=== PATIENT | male | born 1975 | race Caucasian/White ===

== ENCOUNTER 2021-04-20 13:25 | Emergency (ER) | payer OTHER ==
[~2021-04-20] VITALS: Ht 177.8 cm; Wt 78.9 kg
[2021-04-20] MEDS ORDERED: LISINOPRIL10 MG PO (16:37)
[2021-04-20] MEDS ORDERED: OMEPRAZOLE20 MG PO (16:38)
[2021-04-20] MEDS ORDERED: LINZESS290 MCG PO (16:38)
[2021-04-20] MEDS ORDERED: HYDROCODON-ACE1 EA10 PO (20:44)
== END 2021-04-20 21:00 | disposition home or self-care (01) ==
LOC: ED 13:25
DX: S06.0X1A Concussion with loss of consciousness of 30 minutes or less, initial encounter (principal); I10 Essential (primary) hypertension; K21.9 Gastro-esophageal reflux disease without esophagitis; Z79.899 Other long term (current) drug therapy; W22.8XXA Striking against or struck by other objects, initial encounter
CPT/HCPCS: 70450; 72125; 99284-25; A9270

== ENCOUNTER 2021-04-30 16:15 | Emergency (ER) | payer OTHER ==
[~2021-04-30] VITALS: Ht 177.8 cm; Wt 78.9 kg
[~2021-04-30 16:15] MED LIST: HYDROCODON-ACE1 EA10 PO; LINZESS290 MCG PO; LISINOPRIL10 MG PO; OMEPRAZOLE20 MG PO
--- OUTSIDE RECORDS SUMMARY | 2021-04-30 16:18 | XMS ---
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 Charles VISIT COUNT (12 MO.) [facility] NOTE: Visits indicate total known visits. ED/UCC VISIT TRACKING (12 MO.) 04/30/2021 16:17 [facility] [place] TYPE: Emergency COMPLAINT: - SUICIDAL 04/20/2021 13:28 [facility] [place] TYPE: Emergency COMPLAINT: - FALL, HEAD INJURY DIAGNOSES: - Gastro-esophageal reflux disease without esophagitis - Concussion with loss of consciousness of 30 minutes or less, initial encounter - Other [place] [facility] (current[facility] drug therapy - Unspecified injury of head, initial encounter - Essential (primary) hypertension - Striking against or struck by other objects, initial encounter INPATIENT VISIT TRACKING (12 MO.) No inpatient visits to display in this time frame [id number]
--- NOTE | 2021-05-01 08:07 | EKG ---
[facility] [address] [facility] [place], [place] [address] Signed Normal sinus rhythm with sinus arrhythmia Normal ECG No previous ECGs available Confirmed by ROMAN JOHNSON MD ([id number]) on 05/01/2021 8:07:35 AM Electronically Signed By: ROMAN JOHNSON MD 05/01/21 0807 PATIENT NAME: MICHELE PITT Electrocardiogram DATE OF : 73 PHYSICIAN: ROMAN JOHNSON MD REPORT #: [id number] REPORT IS CONFIDENTIAL AND NOT TO BE RELEASED WITHOUT AUTHORIZATION
[2021-05-01] MEDS ORDERED: HYDROXYZINE HCL50 MG PO (11:51)
[2021-05-01] MEDS ORDERED: DICLOFENAC POTA50 MG PO (11:54)
== END 2021-05-01 16:17 ==
LOC: ED 16:15
DX: R45.851 Suicidal ideations (principal); I10 Essential (primary) hypertension; K21.9 Gastro-esophageal reflux disease without esophagitis; Z79.899 Other long term (current) drug therapy; Z20.822 Contact with and (suspected) exposure to COVID-19
CPT/HCPCS: 36415; 80053; 81001; 84443; 85025; 93005; 93010; 99285-25; A9270; C9803; G0480; U0003

== ENCOUNTER 2021-09-08 12:34 | Emergency (ER) | payer OTHER ==
[~2021-09-08] VITALS: Ht 175.3 cm; Wt 101.2 kg
[~2021-09-08 12:34] MED LIST changes: +DICLOFENAC POTA50 MG PO; +HYDROXYZINE HCL50 MG PO
--- OUTSIDE RECORDS SUMMARY | 2021-09-08 12:36 | XMS ---
PreManage Notification: MICHELE PITT Security Endoscope Technician Events No recent Security Events currently on file CRITERIA MET - PDMP CARE PROVIDERS LEATHA WELDON Physician Weight Calculator Current PHONE: [phone] Rachel has no Care Guidelines for this patient. EMatthew VISIT COUNT (12 MO.) 3 [facility] TOTAL 3 NOTE: Visits indicate total known visits. ED/UCC VISIT TRACKING (12 MO.) 09/08/2021 12:35 [facility] [place] TYPE: Emergency COMPLAINT: - MULTIPLE COMPLAINTS 04/30/2021 16:17 [facility] [place] TYPE: Emergency COMPLAINT: - SUICIDAL DIAGNOSES: - Other roasterman (current) drug therapy - Essential (primary) hypertension - Suicidal ideations - Contact with and (suspected) exposure to COVID-19 - Gastro-esophageal reflux disease without esophagitis 04/20/2021 13:28 [facility] [place] TYPE: Emergency COMPLAINT: - FALL, HEAD INJURY DIAGNOSES: - Gastro-esophageal reflux disease without esophagitis - Concussion with loss of consciousness of 30 minutes or less, initial encounter - Other custodial (current) drug therapy - Unspecified injury of head, initial encounter - Essential (primary) hypertension - Striking against or struck by other objects, initial encounter INPATIENT VISIT TRACKING (12 MO.) No inpatient visits to display in this time frame [id number]
[2021-09-08] MEDS ORDERED: LAMOTRIGINE200 MG PO (12:49)
[2021-09-08] MEDS ORDERED: RISPERIDONE2 MG PO (12:49)
[2021-09-08] MEDS ORDERED: AMITRIPTYLINE H25 MG PO (12:49)
[2021-09-08] MEDS ORDERED: ONDANSETRON ODT8 MG PO (15:11)
== END 2021-09-08 15:51 | disposition home or self-care (01) ==
LOC: ED 12:34
DX: K52.9 Noninfective gastroenteritis and colitis, unspecified (principal); I10 Essential (primary) hypertension; K21.9 Gastro-esophageal reflux disease without esophagitis; Z79.899 Other long term (current) drug therapy
CPT/HCPCS: 36415; 80053; 81001; 83690; 85025; 87045; 87493; 96361; 96374; 99284-25; J2405; J7030

== ENCOUNTER 2021-10-27 17:35 | Emergency (ER) | payer OTHER ==
[~2021-10-27] VITALS: Ht 175.3 cm; Wt 101.2 kg
[~2021-10-27 17:35] MED LIST changes: +AMITRIPTYLINE H25 MG PO; +LAMOTRIGINE200 MG PO; +ONDANSETRON ODT8 MG PO; +RISPERIDONE2 MG PO
--- OUTSIDE RECORDS SUMMARY | 2021-10-27 19:15 | XMS ---
PreManage Notification: MICHELE PITT Security Home Supervisor Events No recent Security Events currently on file CRITERIA MET - [facility] CARE PROVIDERS LEATHA WELDON Physician Private Branch Exchange Service Advisor Current PHONE: [phone] Rachel has no Care Guidelines for this patient. EMatthew VISIT COUNT (12 MO.) 4 [facility] TOTAL 4 NOTE: Visits indicate total known visits. ED/UCC VISIT TRACKING (12 MO.) 10/27/2021 17:36 [facility] [place] TYPE: Emergency COMPLAINT: - FEVER ABD PAIN 09/08/2021 12:35 [facility] [place] TYPE: Emergency COMPLAINT: - MULTIPLE COMPLAINTS DIAGNOSES: - Gastro-esophageal reflux disease without esophagitis - Diarrhea, unspecified - Noninfective gastroenteritis and colitis, unspecified - Essential (primary) hypertension - Other [facility] (current) drug therapy 04/30/2021 16:17 [facility] [place] TYPE: Emergency COMPLAINT: - SUICIDAL DIAGNOSES: - Suicidal ideations - Other [facility] (current) drug therapy - Contact with and (suspected) exposure to COVID-19 - Essential (primary) hypertension - Gastro-esophageal reflux disease without esophagitis 04/20/2021 13:[address] 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
[2021-10-27] MEDS ORDERED: HYDROCODON-ACE1 EA10 PO (22:41)
[2021-10-27] MEDS ORDERED: ONDANSETRON ODT8 MG PO (22:41)
[2021-10-27] MEDS ORDERED: METFORMIN HCL500 MG PO (22:42)
== END 2021-10-27 23:14 | disposition home or self-care (01) ==
LOC: ED 17:35
DX: U07.1 COVID-19 (principal); K86.9 Disease of pancreas, unspecified; E11.9 Type 2 diabetes mellitus without complications; K43.9 Ventral hernia without obstruction or gangrene; I10 Essential (primary) hypertension; K21.9 Gastro-esophageal reflux disease without esophagitis; Z79.899 Other long term (current) drug therapy
CPT/HCPCS: 36415; 74177; 80053; 81001; 83605; 83690; 85025; 87502; 96361; 96375; 99284-25; A9270; C9803; J1815; J2270; J2405; J7030; Q9967; U0003

== ENCOUNTER 2021-11-03 21:59 | Emergency (ER) | payer OTHER ==
[~2021-11-03] VITALS: Ht 175.3 cm; Wt 101.2 kg
[~2021-11-03 21:59] MED LIST changes: +METFORMIN HCL500 MG PO
--- OUTSIDE RECORDS SUMMARY | 2021-11-03 22:05 | XMS ---
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 EMatthew VISIT COUNT (12 MO.) [facility] TOTAL 5 NOTE: Visits indicate total known visits. ED/UCC VISIT TRACKING (12 MO.) 11/03/2021 21:59 [facility] [place] TYPE: Emergency COMPLAINT: - BLOOD SUGAR PROBLEM 10/27/2021 17:36 [facility] [place] TYPE: Emergency COMPLAINT: - FEVER ABD PAIN DIAGNOSES: - Type 2 diabetes mellitus without complications - Ventral hernia without obstruction or gangrene - Unspecified abdominal pain - Essential (primary) hypertension - Other manager intermediate (current) drug therapy - Gastro-esophageal reflux disease without esophagitis - COVID-19 - Disease of pancreas, unspecified 09/08/2021 12:35 [facility] [place] TYPE: Emergency COMPLAINT: - MULTIPLE COMPLAINTS DIAGNOSES: - Essential (primary) hypertension - Other custodial (current) drug therapy - Gastro-esophageal reflux disease without esophagitis - Diarrhea, unspecified - Noninfective gastroenteritis and colitis, unspecified 04/30/2021 16:17 [facility] [place] TYPE: Emergency COMPLAINT: - SUICIDAL DIAGNOSES: - Essential (primary) hypertension - Gastro-esophageal reflux disease without esophagitis - Suicidal ideations - Other custodial (current) drug therapy - Contact with and (suspected) exposure to COVID-19 04/20/2021 13:28 [facility] [place] TYPE: Emergency COMPLAINT: - FALL, HEAD INJURY DIAGNOSES: - Concussion with loss of consciousness of 30 minutes or less, initial encounter - Essential (primary) hypertension - Other custodial (current) drug therapy - Gastro-esophageal reflux disease without esophagitis - Striking against or struck by other objects, initial encounter - Unspecified injury of head, initial encounter INPATIENT VISIT TRACKING (12 MO.) No inpatient visits to display in this time frame [id number]
== END 2021-11-04 02:09 | disposition home or self-care (01) ==
LOC: ED 21:59
DX: E11.65 Type 2 diabetes mellitus with hyperglycemia (principal); E86.0 Dehydration; I10 Essential (primary) hypertension; K21.9 Gastro-esophageal reflux disease without esophagitis; Z79.899 Other long term (current) drug therapy; Z79.84 Long term (current) use of oral hypoglycemic drugs
CPT/HCPCS: 36415; 71045; 80053; 81001; 83605; 83690; 84484; 85025; 96374; 99285-25; J1885; J7121

== ENCOUNTER 2021-12-28 07:45 | Day surgery (SDC) | payer OTHER ==
[~2021-12-28] VITALS: Ht 175.3 cm; Wt 99.5 kg
--- NOTE | 2021-12-28 12:20 | NUR ---
12/28/21 1220 Rogelio Winston MEDICATED FOR PAIN AND NUASEA PER EMAR. DESATURATES ON ROOM AIR TO 88%. 2L O2 STARTED VIA NC AT 1215. SPO2 NOW 95%.
--- NOTE | 2021-12-28 12:56 | NUR ---
1245: PATIENT BACK IN DAY SURGERY ROOM FROM PACU. RATES PAIN 4/10. GIVEN ICE WATER, APPLE JUICE, AND CHOCOLATE PUDDING. ABDOMINAL DRESSING JUST ABOVE UMBILICUS IS CLEAN, DRY AND INTACT. VS CHECKED. IV SITE WNL. AND BABY AT BEDSIDE. CALL LIGHT WITHIN REACH.
--- NOTE | 2021-12-28 13:08 | NUR ---
PATIENT TOLERATED APPLE JUICE. REQUESTED CRANBERRY JUICE. MEDICATED FOR PAIN WITH 1 TAB OF NORCO. AND BABY AT BEDSIDE. CALL LIGHT WITHIN REACH.
--- NOTE | 2021-12-28 13:17 | OR ---
[facility] [address] [place], [place] [address] Signed DATE OF OPERATION: 12/28/2021 SURGEON: Annamaria An MD PREOPERATIVE DIAGNOSES: 1. Umbilical hernia (12 mm). 2. Epigastric hernias x2 (4 mm). POSTOPERATIVE DIAGNOSES: 1. Umbilical hernia (12 mm). 2. Epigastric hernias x2 (4 mm). PROCEDURES: 1. Primary umbilical herniorrhaphy with intra-abdominal Ventralex mesh (6.4 cm). 2. Primary epigastric herniorrhaphy x2. ESTIMATED BLOOD LOSS: None. INDICATIONS: Michele is a 46-year-old gentleman, asked to see me mainly for his incarcerated symptomatic umbilical hernia. However, he has two small epigastric hernias just above the umbilicus. We can see these with the ultrasound and the CT scans that he has had. He also has diastasis recti. 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 He noticed that he was having pain and swelling at the umbilicus. He felt it was worse after he eats. He went to his primary care provider. He has had a couple of CT scans recently, I think mainly for his kidney stones. An ultrasound of the abdomen was also performed and sure enough he has incarcerated fat at his umbilicus and then he has two small epigastric hernia just above the umbilicus. The herniated fat is around 7 x 6 mm. He was therefore asked to see me with respect to the above. I met with Michele and his in the office. I had reviewed the radiographic studies myself. One could easily palpate the umbilical hernia, but it was not reducible. We could not specifically palpate the supraumbilical epigastric hernias, which is quite common. I gave Michele a booklet on hernias and we reviewed both epigastric and umbilical hernias. I explained to him we would make a vertical incision above the umbilicus and that help us cover both areas. I also explained to Michele this is actually quite common. Often the epigastric hernias are so small we just simply close them with a [id number] Prolene suture. For the umbilical hernias, we generally use a small piece of mesh. He understands expected intraop and postop course. There is risk including, but not limited to Electronically Signed By: ANNAMARIA AN MD 12/28/21 1317 PATIENT NAME: MICHELE PITT OPERATIVE REPORT DATE OF : 73 REPORT #: [id number] PHYSICIAN: ANNAMARIA AN MD PCP: LEATHA WELDON PA-C REPORT IS CONFIDENTIAL AND NOT TO BE RELEASED WITHOUT AUTHORIZATION [address] [address] Signed bleeding, infection, scarring, change in contour of the skin, damage to bowel, infection of mesh requiring removal, recurrent hernias and chronic pain. He had expressed understanding and wished to proceed. DESCRIPTION OF PROCEDURE: Michele was taken in the operating room and placed in the supine position under general anesthesia. He was given preoperative antibiotics along with subcutaneous heparin. SCDs were utilized. He was prepped and draped in the usual sterile fashion. A standard vertical midline incision was made just above the umbilicus and carried down through the tissues bluntly and with the cautery. We found both the epigastric hernias. Each one was about 4 mm in diameter. There was about 4 mm of fascia between the two. We simply used #1 Prolene suture in a [id number] fashion to close each epigastric hernia primarily. After this, we the umbilical skin from the umbilical fascial defect, then excise the hernia sac and pass it off the field. The fascial defect was probably 12 mm. We therefore chose our 6.4 cm round Ventralex mesh. This was placed inside the abdominal cavity and brought up flushed against the posterior abdominal wall. We closed the fascial defect transversely with a running #1 Prolene suture. Several passes of the Prolene suture went through the tab on the mesh to help hold it in place. The tab was cut, flushed with the abdominal wall. We then injected local anesthetic into the abdominal wall as well as the subcutaneous tissues. The wound was irrigated and suctioned out until clear. We brought the umbilical skin back down to the midline with interrupted 2-0 PDS suture. We closed the dermis with interrupted 3-0 Monocryl subcuticular sutures. The skin edges were reapproximated with a running 5-0 fast absorbing plain gut suture. Dry gauze and tape were then applied. Michele was then awakened from his anesthesia, extubated in the OR, and taken to recovery room in stable condition. Annamaria An MD ALB/MODL /[id number] cc: LENA Steward MD Electronically Signed By: ANNAMARIA AN MD 12/28/21 1317 PATIENT NAME: MICHELE PITT OPERATIVE REPORT DATE OF : 73 REPORT #: [id number] PHYSICIAN: ANNAMARIA AN MD PCP: LEATHA WELDON PA-C REPORT IS CONFIDENTIAL AND NOT TO BE RELEASED WITHOUT AUTHORIZATION [address] [address] Signed Copies: LEATHA WELDON PA-C, ANDREW L MD ~ Electronically Signed By: ANNAMARIA AN MD 12/28/21 1317 PATIENT NAME: MICHELE PITT OPERATIVE REPORT DATE OF : 73 REPORT #: [id number] PHYSICIAN: ANNAMARIA AN MD PCP: LEATHA WELDON PA-C REPORT IS CONFIDENTIAL AND NOT TO BE RELEASED WITHOUT AUTHORIZATION
[2021-12-28] MEDS ORDERED: HYDROCODON-ACE1 EAC8 PO (13:25)
--- NOTE | 2021-12-28 15:24 | NUR ---
1340: VS CHECKED. RATED PAIN 4/10. PATIENT ASSISTED TO GET OOB AND TO BATHROOM. VOID WITHOUT DIFFICULTY. ASSISTED TO GET DRESSED BY . DISCHARGE INSTRUCTIONS GIVEN TO PATIENT. 1358: IV DC'D WNL. TIP INTACT. DRESSING APPLIED. PATIENT DISCHARGED TO HOME WITH AND BABY VIA MEDICAL TRANSPORT.
== END 2021-12-28 13:58 | disposition home or self-care (01) ==
LOC: DS 07:45
PROVIDERS: ATTEND Colon & Rectal Surgery
PROC: 0WUF0JZ Supplement Abdominal Wall with Synthetic Substitute, Open Approach (ICD-10-PCS; principal; 2021-12-28 08:50)
DX: K42.0 Umbilical hernia with obstruction, without gangrene (principal); K43.9 Ventral hernia without obstruction or gangrene; M62.08 Separation of muscle (nontraumatic), other site
CPT/HCPCS: J0131; J0690; J1100; J1644; J1885; J2001; J2405; J2704; J3010; J7121

== ENCOUNTER 2022-01-23 14:58 | Emergency (ER) | payer OTHER ==
[~2022-01-23] VITALS: Ht 175.3 cm; Wt 96.6 kg
[~2022-01-23 14:58] MED LIST changes: +HYDROCODON-ACE1 EAC8 PO
--- OUTSIDE RECORDS SUMMARY | 2022-01-23 15:00 | XMS ---
PreManage Notification: MICHELE PITT Security Dairy Farmer Events No recent Security Events currently on file CRITERIA MET - [facility] CARE PROVIDERS LEATHA WELDON Physician Dynamite Packing Machine Operator Current PHONE: [phone] Rachel has no Care Guidelines for this patient. E.Juan J VISIT COUNT (12 MO.) 6 [facility] TOTAL 6 NOTE: Visits indicate total known visits. 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 - Essential (primary) hypertension - Headache, unspecified - intermission coordinator (current) use of oral hypoglycemic drugs - Type 2 diabetes mellitus with hyperglycemia - Dehydration - Gastro-esophageal reflux disease without esophagitis 10/27/2021 17:36 [facility] [place] TYPE: Emergency COMPLAINT: - FEVER ABD PAIN DIAGNOSES: - Essential (primary) hypertension - Other [facility] (current) drug therapy - Gastro-esophageal reflux disease without esophagitis - COVID-19 - Disease of pancreas, unspecified - Type 2 diabetes mellitus without complications - Ventral hernia without obstruction or gangrene - Unspecified abdominal pain 09/08/2021 12:35 [facility] [place] TYPE: Emergency COMPLAINT: - MULTIPLE COMPLAINTS DIAGNOSES: - Gastro-esophageal reflux disease without esophagitis - Diarrhea, unspecified - Noninfective gastroenteritis and colitis, unspecified - Essential (primary) hypertension - Other fpc (current) drug therapy 04/30/2021 16:17 [facility] [place] TYPE: Emergency COMPLAINT: - SUICIDAL DIAGNOSES: - Suicidal ideations - Other fpc (current) drug therapy - Contact with and (suspected) exposure to COVID-19 - Essential (primary) hypertension - Gastro-esophageal reflux disease without esophagitis 04/20/2021 13:28 [facility] [place] TYPE: Emergency COMPLAINT: - FALL, HEAD INJURY DIAGNOSES: - 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
[2022-01-23] MEDS ORDERED: LATUDA80 MG PO (16:36)
[2022-01-23] MEDS ORDERED: JARDIANCE10 MG PO (16:36)
[2022-01-23] MEDS ORDERED: GABAPENTIN800 MG PO (16:36)
[2022-01-23] MEDS ORDERED: TAMSULOSIN HCL0.4 MG PO (16:36)
[2022-01-23] MEDS ORDERED: PHENAZOPYRIDIN100 MG PO (16:37)
[2022-01-23] MEDS ORDERED: HYDROCODON-ACE1 EA11 PO (18:58)
== END 2022-01-23 19:10 | disposition home or self-care (01) ==
LOC: ED 14:58
DX: S39.011A Strain of muscle, fascia and tendon of abdomen, initial encounter (principal); I10 Essential (primary) hypertension; K21.9 Gastro-esophageal reflux disease without esophagitis; Z79.899 Other long term (current) drug therapy; Z79.84 Long term (current) use of oral hypoglycemic drugs; X58.XXXA Exposure to other specified factors, initial encounter
CPT/HCPCS: 36415; 74177; 80053; 85025; 85060; 99284-25; A9270

== ENCOUNTER 2023-04-06 16:18 | Emergency (ER) | payer OTHER ==
[~2023-04-06] VITALS: Ht 175.3 cm; Wt 98.7 kg
[~2023-04-06 16:18] MED LIST changes: +GABAPENTIN800 MG PO; +HYDROCODON-ACE1 EA11 PO; +JARDIANCE10 MG PO; +LATUDA80 MG PO; +PHENAZOPYRIDIN100 MG PO; +TAMSULOSIN HCL0.4 MG PO
--- OUTSIDE RECORDS SUMMARY | 2023-04-06 16:20 | XMS ---
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 E.DClint VISIT COUNT (12 MO.) 2 [facility]st TOTAL 2 NOTE: Visits indicate total known visits. 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
[2023-04-06] MEDS ORDERED: ALBUTEROL/IPRATROPIUM 3 ML NEB INH ONE (17:45)
[2023-04-06] MEDS ORDERED: methylPREDNISolone 4 MG HOME.PACK PO ONE (18:45)
[2023-04-06] MEDS ORDERED: INHALER, ASSIST DEVICES 1 EACH SPACER MISC ONE (18:45)
[2023-04-06] MEDS ORDERED: ALBUTEROL SULFATE 8 GM HOME.PACK INH ONE (18:45)
[2023-04-06 18:55] VITALS: BP 129/85
== END 2023-04-06 18:55 | disposition home or self-care (01) ==
LOC: ED 16:18
DX: J10.1 Influenza due to other identified influenza virus with other respiratory manifestations (principal); I10 Essential (primary) hypertension; K21.9 Gastro-esophageal reflux disease without esophagitis; Z79.899 Other long term (current) drug therapy; Z79.84 Long term (current) use of oral hypoglycemic drugs
CPT/HCPCS: 71045; 94640; 94664; 99283-25

== ENCOUNTER 2023-06-21 07:34 | Day surgery (SDC) | payer OTHER ==
[~2023-06-21] VITALS: Ht 175.3 cm; Wt 95.0 kg
[~2023-06-21 07:34] MED LIST changes: +ADDERALL XR 2020 MG PO; +ADZENYS XR-OD18.8 MG PO; +CHLORPROMA25 MG/1 ML INJ; +DEXTROAMP-AMPHE10 MG PO; +FLOMAX0.4 MG PO; +IBLOOD GLUCOSE TEST STRIP 1 EA TEST VI PRN; +LACTATED RINGER'S 1,000 ML IV SCH; +LIDOCAINE HCL 1% 5 ML SDV INJ ONE; +LIPITOR20 MG PO; +PROPRANOLOL HCL40 MG PO; +VASCEPA1 GM PO; +VIT D2-K1 20-1259 ML PO
[2023-06-21 08:05] VITALS: BP 115/72
[2023-06-21] MEDS ORDERED: CHLORPROMAZINE25 MG PO (08:10)
[2023-06-21] MEDS ORDERED: METOPROLOL SUCC25 MG PO (08:10)
[2023-06-21] MEDS ORDERED: LISINOPRIL20 MG PO (08:11)
[2023-06-21] MEDS ORDERED: TRAZODONE HCL100 MG PO (08:11)
[2023-06-21] MEDS ORDERED: LIDOCAINE HCL 2% 5 ML SDV ONE (09:11)
[2023-06-21] MEDS ORDERED: propofoL 200 MG/20 ML VIAL ONE (09:28)
--- NOTE | 2023-06-21 09:54 | NUR ---
06/21/23 0954 Amauri Mccain 0938: PT ARRIVED TO PACU VIA STETCHER. PT ON RA BUT NON AROUSABLE AT THIS TIME. PTS SATS 92% ON RA AT THIS TIME. 0943: PT NOW AROUSABLE AT THIS TIME. PT ASKING FOR WATER. PT REMAINS ON RA WITH SATS IN THE MID 90'S. 0945: PT COMPLAINING OF NAUSEA AT THIS TIME. PT PASSING LARGE AMOUNTS OF GAS. DISCUSSED WITH PATIENT THE NEED TO PASS GAS TO HELP WITH NAUSEA TO VERBALIZED UNDERSTANDING.
[2023-06-21 10:31] VITALS: BP 119/80
--- NOTE | 2023-06-21 10:55 | NUR ---
PT CAME BACK TO DAY SURGERY TO GET DRESSED, PT ALERT AND ORIENTED. VOIDED CLEAR YELLOW URINE, 400 ML IN URINAL. SALINE LOCK REMOVED, TIP INTACT, DRESSING APPLIED. PT VERBALIZED UNDERSTANDING OF INSTRUCTIONS. NO SIGNS OF DISTRESS. AMBULATED WITH STEADY GAIT TO WHEEL CHAIR AND TAKEN OUT TO RIDE HOME WITH ALL BELONGINGS.
--- NOTE | 2023-06-22 09:08 | OR ---
[facility] [address] [place], [place] [address] Signed DATE OF OPERATION: 06/21/2023 SURGEON: Annamaria An MD PREOPERATIVE DIAGNOSES: 1. Chronic irritable bowel syndrome associated with severe constipation. 2. Paternal great grandmother with colon cancer in her late 80s. POSTOPERATIVE DIAGNOSES: 1. Minimal to moderate circumferential external hemorrhoids. 2. Poor bowel prep. PROCEDURE: Colonoscopy without biopsy to the midtransverse colon (80 cm). ESTIMATED BLOOD LOSS: None. INDICATIONS: Michele is a 47-year-old gentleman, asked to see me for his initial colonoscopy. He said he has various mental health medications and also has a long history of irritable bowel syndrome associated with chronic constipation. He said the medications make his constipation worse. He told me he only has a bowel movement about every 6-8 weeks. He said his has to help him with suppositories or enemas. He said Linzess really helped, but his insurance will not cover it. For some reason, he did not seem to be very familiar with MiraLAX. He takes an uoxm-rdo-rfqlckr fiber supplement. He told me his paternal great grandmother developed colon cancer in her very late 80s. She from her colon cancer in her early 90s. He had come to the office with his and his son. His is deaf and she uses a phone that interprets for her so she can communicate. In the office I had given him a pamphlet on colonoscopy. We reviewed the nature of the test together. He understands there is risk including, but not limited to gas bloating, crampy abdominal pain, bleeding, perforation requiring surgery, and missed diagnosis. We went through our bowel prep very carefully. We are going to have him take a double bowel prep. That includes a Dulcolax tablets and entire gallon of polyethylene glycol. For some reason, he wanted to use Dulcolax suppositories rather than tablets by mouth. We also went through his medications very carefully with respect to his diabetes and his Adderall. He also has to use some tramadol as needed. Based on that, we explained that he really needs monitored anesthesia care with propofol infusion. In addition, he has a full face, hammer and he is edentulous. Therefore, he underwent preoperative blood work and an EKG. He had expressed understanding and wished Electronically Signed By: ANNAMARIA AN MD 06/22/23 0908 PATIENT NAME: MICHELE PITT OPERATIVE REPORT DATE OF : 73 REPORT #: [id number] PHYSICIAN: ANNAMARIA AN MD PCP: ELVA WELDON PA-C REPORT IS CONFIDENTIAL AND NOT TO BE RELEASED WITHOUT AUTHORIZATION [address] [place], [place] [address] Signed to proceed. PROCEDURE IN DETAIL: Michele was taken into our endoscopy suite and placed in the left lateral decubitus position. He was given monitored anesthesia care, propofol infusion per our nurse primary montessori teacher. We can see his preoperative blood work showed that his BUN is up a little at 19, his creatinine is 1.53. Today, sugar was good, but preoperatively his sugar was 307. His albumin is good at 3.7. EKG showed normal sinus rhythm. After he was fully sedated, a digital rectal exam was performed. He does have small circumferential external hemorrhoids. He had good sphincter tone. There were no masses. We could not reach his prostate gland. The adult colonoscope was introduced and advanced under direct visualization of the camera. He immediately had large alison-like stool balls in the rectum up to sigmoid colon and left colon. Around those areas, he was actually clean. Unfortunately, when we got around the splenic flexure into the mid transverse colon we encountered a wall of stool that we simply could not pass. We tried multiple times as well as some irrigation and we simply could not pass the scope any further. As a result, we had to withdrawal the scope. We had taken several pictures throughout for photodocumentation. He has no diverticulosis. No inflammatory changes. Once in the rectum, the scope was retroflexed and he really has no internal hemorrhoids. After this, the gas was suctioned out. The colonoscope removed. Michele actually tolerated the procedure quite well. RECOMMENDATIONS: I will see Michele back in my office in 7 to 14 days to review these results. He is going to need what looks like a fairly substantial bowel prep. We will have to review that with him in the office. We may have to add some magnesium citrate or even two full days of prep. Annamaria An MD ALB/MODL /[id number] cc: MD Elva Morrison PA-C Electronically Signed By: ANNAMARIA AN MD 06/22/23 0908 PATIENT NAME: MICHELE PITT OPERATIVE REPORT DATE OF : 73 REPORT #: [id number] PHYSICIAN: ANNAMARIA AN MD PCP: ELVA WELDON PA-C REPORT IS CONFIDENTIAL AND NOT TO BE RELEASED WITHOUT AUTHORIZATION [address] [place], [place] [address] Signed Copies: ANNAMARIA AN MD, CHLOE K PA-C ~ Electronically Signed By: ANNAMARIA AN MD 06/22/23 0908 PATIENT NAME: MICHELE PITT OPERATIVE REPORT DATE OF : 73 REPORT #: [id number] PHYSICIAN: ANNAMARIA AN MD PCP: ELVA WELDON PA-C REPORT IS CONFIDENTIAL AND NOT TO BE RELEASED WITHOUT AUTHORIZATION
== END 2023-06-21 10:55 | disposition home or self-care (01) ==
LOC: DS 07:34
PROVIDERS: ATTEND Colon & Rectal Surgery
PROC: 0DJD8ZZ Inspection of Lower Intestinal Tract, Via Natural or Artificial Opening Endoscopic (ICD-10-PCS; principal; 2023-06-21 09:00)
DX: K58.1 Irritable bowel syndrome with constipation (principal); I10 Essential (primary) hypertension; E11.9 Type 2 diabetes mellitus without complications; E78.1 Pure hyperglyceridemia; E66.9 Obesity, unspecified; Z79.84 Long term (current) use of oral hypoglycemic drugs; Z79.899 Other long term (current) drug therapy; Z68.31 Body mass index [BMI] 31.0-31.9, adult
CPT/HCPCS: 00811; J2001; J2704; J7121

== ENCOUNTER 2023-10-19 07:35 | Emergency (ER) | payer OTHER ==
[~2023-10-19] VITALS: Ht 175.3 cm; Wt 81.0 kg
[~2023-10-19 07:35] MED LIST changes: +CHLORPROMAZINE25 MG PO; -IBLOOD GLUCOSE TEST STRIP 1 EA TEST VI PRN; -LACTATED RINGER'S 1,000 ML IV SCH; -LIDOCAINE HCL 1% 5 ML SDV INJ ONE; +LISINOPRIL20 MG PO; +METOPROLOL SUCC25 MG PO; +TRAZODONE HCL100 MG PO
[2023-10-19] MEDS ORDERED: HYDROmorphone HCL 1 MG/ML SYR IV ONE (07:45)
[2023-10-19] MEDS ORDERED: SODIUM CHLORIDE 0.9% 1,000 ML IV ONE (07:45)
[2023-10-19 07:57] LABS: BASOPHILS 0.5 % (0-2); EOSINOPHILS 2.7 % (0-6); HEMATOCRIT 38.2 % (35.0-50.0); LYMPHOCYTES 30.2 % (24-44); MCH 29.9 (27-36); MCHC 34.1 g/dl (30-36); MCV 87.8 fl (81-99); MONOCYTES 10.8 % (0-12); NEUTROPHILS 55.8 % (39-80); PLATELET COUNT 275 K/uL (140-440); RBC 4.35 M/ul (4.3-5.7); RDW 13.9 (10.5-15.0)
[2023-10-19 08:13] LABS: ALBUMIN 3.4 g/dL (3.4-5.0); ALBUMIN/GLOBULIN RATIO 0.92 (1.1-2.4); ANION GAP 13.3 (7-21); BILIRUBIN, TOTAL 0.4 ng/dL (0.2-1.0); BUN/CREATININE RATIO 14.17 (6.0-28.6); CALCIUM 9.2 mg/dL (8.5-10.1); CREATININE, SERUM 1.34 mg/dL (0.70-1.30); POTASSIUM 3.3 mmol/L (3.5-5.1); PROTEIN, TOTAL 7.1 g/dL (6.4-8.2)
[2023-10-19 09:00] VITALS: BP 130/84
[2023-10-19] MEDS ORDERED: MAGNESIUM CITRATE 300 ML BTL PO ONE (09:00)
== END 2023-10-19 09:00 | disposition home or self-care (01) ==
LOC: ED 07:35
PROVIDERS: Emergency Medicine
DX: R10.11 Right upper quadrant pain (principal); K59.00 Constipation, unspecified; K21.9 Gastro-esophageal reflux disease without esophagitis; I10 Essential (primary) hypertension; Z79.84 Long term (current) use of oral hypoglycemic drugs; Z79.899 Other long term (current) drug therapy
CPT/HCPCS: 36415; 74176; 76705; 80053; 83690; 85025; 96374; 99284-25; J1170; J7030

== ENCOUNTER 2024-02-23 17:31 | Observation (INO) | payer OTHER ==
[~2024-02-23] VITALS: Ht 175.3 cm; Wt 91.9 kg
[2024-02-23] MEDS ORDERED: ondansetron HCL 4 MG/2 ML VIAL IV PRN ×2 (18:00→21:45)
[2024-02-23] MEDS ORDERED: KETOROLAC TROMETHAMINE 15 MG/ML VIAL IV ONE (18:00)
[2024-02-23] MEDS ORDERED: DAPAGLIFLOZIN10 MG PO (18:04)
[2024-02-23] MEDS ORDERED: LURASIDONE HCL80 MG PO (18:05)
[2024-02-23 18:27] LABS: BASOPHILS 0.1 % (0-2); HEMATOCRIT 45.6 % (35.0-50.0); HEMOGLOBIN 15.3 g/dL (12.0-18.0); LYMPHOCYTES 5.6 % (24-44); MCH 29.3 (27-36); MCHC 33.6 g/dl (30-36); MCV 87.1 fl (81-99); MONOCYTES 4.3 % (0-12); PLATELET COUNT 317 K/uL (140-440); RBC 5.24 M/ul (4.3-5.7); RDW 15.3 (10.5-15.0)
[2024-02-23] MEDS ORDERED: MORPHINE SULFATE 4 MG/ML VIAL IV ONE ×2 (18:30→20:00)
[2024-02-23 18:31] LABS: ALBUMIN/GLOBULIN RATIO 0.83 (1.1-2.4); ANION GAP 15.6 (7-21); BILIRUBIN, TOTAL 0.3 ng/dL (0.2-1.0); BUN/CREATININE RATIO 12.25 (6.0-28.6); CALCIUM 9.3 mg/dL (8.5-10.1); CREATININE, SERUM 2.04 mg/dL (0.70-1.30); POTASSIUM 3.6 mmol/L (3.5-5.1); PROTEIN, TOTAL 8.8 g/dL (6.4-8.2)
[2024-02-23] MEDS ORDERED: LIDOCAINE 2% VISCOUS 6 ML SYR TOP ONE ×2 (20:30→23:30)
[2024-02-23 20:55] LABS: BILIRUBIN, URINE NEGATIVE (negative); BLOOD/HGB, URINE LARGE (Negative); KETONE, URINE NEGATIVE (Negative); LEUK ESTERASE, URINE NEGATIVE (negative); NITRITE, URINE POSITIVE (negative)
[2024-02-23 21:04] LABS: BACTERIA, URINE 1+ /hpf (negative); CASTS, URINE NONE SEEN \\lpf; CRYSTALS, URINE NONE SEEN (0-1+); EPITHELIAL CELLS, URINE NONE SEEN /lpf (0-1+); RED BLOOD CELLS, URINE 41-50 /hpf (0-5)
[2024-02-23 21:05] LABS: COLLECTION TYPE, URINE CLEAN CATCH; REFLEX CULTURE, URINE No (No)
[2024-02-23] MEDS ORDERED: SODIUM CHLORIDE 0.9% 1,000 ML IV ONE (21:30)
[2024-02-23] MEDS ORDERED: CEFTRIAXONE/SODIUM CHLORIDE 2 GM/100 ML PIGGYBACK IV ONE (21:30)
[2024-02-23] MEDS ORDERED: IBLOOD GLUCOSE TEST STRIP 1 EA TEST VI SCH (21:45)
[2024-02-23] MEDS ORDERED: DEXTROSE 5% - LACTATED RINGERS 1,000 ML IV SCH (21:45)
[2024-02-23] MEDS ORDERED: INSULIN LISPRO 100 UNIT/ML ML SUB-Q SCH (21:45)
[2024-02-23] MEDS ORDERED: ACETAMINOPHEN 325 MG TAB PO PRN (21:45)
[2024-02-23] MEDS ORDERED: KETOROLAC TROMETHAMINE 15 MG/ML VIAL IV PRN (21:45)
[2024-02-23] MEDS ORDERED: HYDROmorphone HCL 1 MG/ML SYR IV PRN ×2 (21:45)
[2024-02-23 22:19] VITALS: BP 173/96
--- NOTE | 2024-02-23 23:11 | NUR ---
- Pt admitted to room 123 at 2215 pm.via stretcher from ED, helped transferring tolerated well. ivf bolus completed soon after admitting to this unit. tolerated clear liquids no n/v, aware of NPO status after midnight, was straight cath in the ED prior to admit. IVf infusing, was medicated with Dilaudid 0.5mg per 8/10 urinary pain. Coop with admit questions and assessments. tele#[address] denies CP or SOB with exertion. Kisha who is deaf at bedside. Pt and oriented to room and procedures, both stated understanding
--- NOTE | 2024-02-24 00:02 | NUR ---
PT UED URINAL, VOIDED 650CC ORANGE COLORED URINE. C/O PAIN WITH URINATION.
[2024-02-24 01:35] VITALS: BP 151/98
--- NOTE | 2024-02-24 02:08 | NUR ---
Awake, c/o urinary pain, medicated with Dilaudid 0.5mg IV. IVF infusing. NPO, soes own oral care. rooming in
[2024-02-24 05:18] VITALS: BP 163/108
[2024-02-24 05:20] VITALS: BP 163/108
[2024-02-24 05:24] LABS: BASOPHILS 0.3 % (0-2); EOSINOPHILS 0.9 % (0-6); HEMATOCRIT 39.7 % (35.0-50.0); HEMOGLOBIN 13.3 g/dL (12.0-18.0); MCHC 33.5 g/dl (30-36); MCV 86.7 fl (81-99); MONOCYTES 11.7 % (0-12); NEUTROPHILS 68.1 % (39-80); PLATELET COUNT 272 K/uL (140-440); RBC 4.58 M/ul (4.3-5.7); RDW 15.4 (10.5-15.0)
--- NOTE | 2024-02-24 05:30 | NUR ---
Pt sitting edge of bed trying to use urinal, voided 400cc orange colored urine, c/o 8/10 pain, medicated with Dilaudid 0.5mg IV. Repositioned self back in bed. NPO since midnight, does own oral care, on room air. Abd upper abd slightly firmer than lower abd, brandy. IVF infusing w/o problems. at bedside.
[2024-02-24 05:40] LABS: ALBUMIN 3.3 g/dL (3.4-5.0); ALBUMIN/GLOBULIN RATIO 0.85 (1.1-2.4); ANION GAP 12.7 (7-21); BILIRUBIN, TOTAL 0.4 ng/dL (0.2-1.0); BUN/CREATININE RATIO 10.88 (6.0-28.6); CALCIUM 8.7 mg/dL (8.5-10.1); CREATININE, SERUM 1.93 mg/dL (0.70-1.30); POTASSIUM 3.7 mmol/L (3.5-5.1); PROTEIN, TOTAL 7.2 g/dL (6.4-8.2)
--- NOTE | 2024-02-24 07:20 | NUR ---
REPORT RECEIVED FROM NICHELLE WILDER. PT AWAKE IN BED, PRESENT IN CHAIR AT BEDSIDE. NO REQUESTS AT THIS TIME, CALL LIGHT IN REACH.
--- NOTE | 2024-02-24 08:25 | NUR ---
Board has been updated and glucose chech has been completed. Call light has been placed within reach.Urinal was given
[2024-02-24] MEDS ORDERED: CEFTRIAXONE/SODIUM CHLORIDE 2 GM/100 ML PIGGYBACK IV SCH (09:00)
[2024-02-24 09:34] VITALS: BP 133/98
--- NOTE | 2024-02-24 09:56 | NUR ---
ARRIVES TO ASSESS PT AND OBTAIN CONSENT AT THIS TIME.
[2024-02-24 10:03] VITALS: BP 133/98
--- NOTE | 2024-02-24 10:05 | NUR ---
DR MCKEON ANSWERS ALL QUESTIONS, CONSENT OBTAINED. PT HAS NO OTHER REQUESTS AT THIS TIME, CALL LIGHT IN REACH, REMAINS AT BEDSIDE.
--- NOTE | 2024-02-24 10:09 | NUR ---
DR MCKEON REQUESTS CXR AND EKG AT THIS TIME, ORDERS PLACED.
[2024-02-24] MEDS ORDERED: PHENAZOPYRIDINE HCL 100 MG TAB PO PRN (10:45)
[2024-02-24] MEDS ORDERED: HYDROmorphone HCL 1 MG/ML SYR IV PRN (10:45)
[2024-02-24] MEDS ORDERED: ondansetron HCL 4 MG/2 ML VIAL IV PRN (10:45)
[2024-02-24] MEDS ORDERED: OXYCODONE/APAP 5/325 TAB PO PRN (10:45)
--- NOTE | 2024-02-24 10:55 | NUR ---
PT READY FOR SURGERY AT THIS TIME. URINAL EMPTIED, PT VOIDS CLEAR, YELLOW URINE. NO OTHER REQUESTS, CALL LIGHT IN REACH.
[2024-02-24] MEDS ORDERED: iopamidoL 30 ML VIAL ONE (10:58)
[2024-02-24] MEDS ORDERED: fentaNYL citrate 100 MCG/2 ML VIAL ONE (11:01)
[2024-02-24] MEDS ORDERED: propofoL 200 MG/20 ML VIAL ONE (11:02)
[2024-02-24] MEDS ORDERED: ondansetron HCL 4 MG/2 ML VIAL ONE (11:02)
[2024-02-24] MEDS ORDERED: DEXAMETHASONE SOD PHOS 4 MG/ML VIAL ONE (11:02)
[2024-02-24] MEDS ORDERED: LIDOCAINE HCL 2% 5 ML SDV ONE (11:03)
--- NOTE | 2024-02-24 11:13 | NUR ---
PT TAKEN TO SURGERY BY SPIRITUAL ADVISOR AT THIS TIME.
[2024-02-24] MEDS ORDERED: CEFTRIAXONE/SODIUM CHLORIDE 2 GM/100 ML PIGGYBACK IV ONE (11:15)
[2024-02-24] MEDS ORDERED: ACETAMINOPHEN 1,000 MG/100 ML VIAL ONE (11:36)
--- NOTE | 2024-02-24 12:24 | NUR ---
PT REMAINS OFF THE FLOOR AT THIS TIME.
--- NOTE | 2024-02-24 12:40 | NUR ---
PT RETURNS FROM SURGERY. REPORT RECEIVED. PT AMBULATES FROM SURGERY STRETCHER TO HOSPITAL BED INDEPENDENTLY. PT REPORTS FEELING HUNGRY - CLEAR LIQUID LUNCH TRAY PROVIDED AT THIS TIME. VS TAKEN AND RECORDED. SCDs IN PLACE, IVF INFUSING WNL. NO OTHER REQUESTS AT THIS TIME, CALL LIGHT IN REACH.
[2024-02-24 12:45] VITALS: BP 145/92
--- NOTE | 2024-02-24 12:52 | NUR ---
02/24/24 1252 ROZ NOVA 1153 PT ARRIVED TO PACU VIA STREACHER. PT HAS NATURAL AIRWAY IN PLACE. PT ON ROOM AIR. PT BREATHING EQUAL AND UNLABORED. REPORT TAKEN FROM MARILUZ LUA. PT NONRESPONSIVE TO STIMULI. ALL MONITORS ATTACHED. 1200 PT RESPONSIVE TO STIMULI, PT REPORTS PAIN. BUT FALLS RIGHT BACK ASLEEP AFTER TALKING. 1215 PT REPORTING 8/10 PAIN, PT OXYGEN AT 90-94%, PT RESPIRATIONS RANGING FROM 10-12. DISUCESSED GETTING PT TO FLOOR AND TAKING A PAIN PILL, PT AGREEABLE TO THIS. PT USED URINAL TO URIATE 75 MLS OF FLETCHER TINGED URINE. 1224 PT STATES HE IS HAVING NAUSEA, 4MG OF ZOFRAN GIVEN IV 4MG OF ZOFRAN WAS GIVEN BY STONEY MCGRAW IN CASE. 1230 PT STATES HIS NAUSEA FEELS BETTER. 1240 PT TRANSFERRED TO [facility] ROOM 123, IN ROOM. REPORT GIVEN TO [facility] RN, CARE TRANSFERRED AT THIS TIME. PT ABLE TO AMBULATE FROM STREACHER TO PT'S BED. PT SITTING UPRIGHT SIPPING ICE WATER AT THIS TIME. PT RESTING IN BED, CALL LIGHT WITHIN REACH, PERSONAL ITEMS WITHIN REACH AND BED IS LOW AND LOCKED. PT HAS NO QUESTIONS AT THIS TIME.
--- NOTE | 2024-02-24 12:55 | NUR ---
CPOX IN PLACE AT BEDSIDE, TAKES OVER CARES. PT FINISHED CLEAR LIQUID LUNCH TRAY IN ABOUT 10 MINUTES, HE IS ENCOURAGED TO SLOW DOWN BUT REFUSES. PTs IS FEEDING HIM FROM THE TRAY. PT REPORTS NEEDING TO USE THE URINAL, PTs WAVES FOR THIS RN TO EXIT THE ROOM AND SHE WILL ASSIST PT. NO OTHER REQUESTS AT THIS TIME, CALL LIGHT IN REACH.
[2024-02-24] MEDS ORDERED: OXYCODONE HCL5 MG PO (13:09)
[2024-02-24] MEDS ORDERED: PYRIDIUM200 MG PO (13:09)
[2024-02-24] MEDS ORDERED: ONDANSETRON ODT8 MG PO (13:11)
[2024-02-24] MEDS ORDERED: COLACE100 MG PO (13:19)
[2024-02-24] MEDS ORDERED: CIPRO500 MG PO (13:19)
--- NOTE | 2024-02-24 13:32 | NUR ---
MEDICATION ADMINISTERED, SEE MAR. PT VOIDS 225ML OF PINK TINGED URINE, SMALL BLOOD NOTED. PT ALSO EATS SALTINE CRACKERS AT THIS TIME. NO REPORTS OF NAUSEA OR DISCOMFORT. PT REPORTS HIS RIDE HOME WILL BE HERE IN ABOUT 30 MINUTES. SPO2 SUSTAINS 95% ON ROOM AIR SINCE ARRIVING BACK TO FLOOR. CPOX AND SCDs REMOVED AT THIS TIME SO PT MAY BEGIN GETTING DRESSED. PTs CURRENTLY ASSISTING PT TO GET DRESSED. NO FURTHER REQUESTS AT THIS TIME, CALL LIGHT IN REACH.
[2024-02-24] MEDS ORDERED: SEVOFLURANE 250 ML BTL INH ONE (17:07)
--- NOTE | 2024-02-29 10:04 | EKG ---
[facility] [address] [facility] [place] [address] Signed Normal sinus rhythm Possible Left atrial enlargement Incomplete right bundle branch block Borderline ECG When compared with ECG of 23-MAY-2023 15:58, Vent. rate has decreased BY 42 BPM T wave inversion no longer evident in Anterior leads Confirmed by Yaa Londono DO ([id number]) on 02/29/2024 10:04:43 AM Electronically Signed By: YAA LONDONO DO 02/29/24 1004 PATIENT NAME: MICHELE PITT Electrocardiogram DATE OF : 73 PHYSICIAN: YAA LONDONO DO REPORT #: [id number] REPORT IS CONFIDENTIAL AND NOT TO BE RELEASED WITHOUT AUTHORIZATION
[2024-03-06] MEDS ORDERED: FARXIGA10 MG PO (14:47)
[2024-03-06] MEDS ORDERED: HYDROMORPHONE ER8 MG PO (14:50)
== END 2024-02-24 14:07 | disposition home or self-care (01) ==
LOC: ED 17:31 → MS 17:32
PROVIDERS: Emergency Medicine; Family Medicine; ADMIT Urology; ATTEND Urology
PROC: 0WHR8YZ Insertion of Other Device into Genitourinary Tract, Via Natural or Artificial Opening Endoscopic (ICD-10-PCS; principal; 2024-02-24 11:16)
DX: N20.1 Calculus of ureter (principal); N39.0 Urinary tract infection, site not specified; N17.9 Acute kidney failure, unspecified; I10 Essential (primary) hypertension; K21.9 Gastro-esophageal reflux disease without esophagitis; E11.9 Type 2 diabetes mellitus without complications; Z79.84 Long term (current) use of oral hypoglycemic drugs
CPT/HCPCS: 00910; 36415; 51701; 51798; 71045; 74176; 74430; 80053; 81001; 85025; 87088; 93005; 93010; 96361; 96376; 99285-25; C1769; C2617; G0378; J0131; J0696; J1100; J1171; J1815; J1885; J2003; J2270; J2405; J2704; J3010; J7030; J7121; Q9958

== ENCOUNTER 2024-02-26 19:44 | Emergency (ER) | payer OTHER ==
[~2024-02-26] VITALS: Ht 175.3 cm; Wt 92.1 kg
[~2024-02-26 19:44] MED LIST changes: +CIPRO500 MG PO; +COLACE100 MG PO; +DAPAGLIFLOZIN10 MG PO; +LURASIDONE HCL80 MG PO; +OXYCODONE HCL5 MG PO; +PYRIDIUM200 MG PO
--- OUTSIDE RECORDS SUMMARY | 2024-02-26 19:51 | XMS ---
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 EMatthew VISIT COUNT (12 MO.) [address] [place] [address] MClintCClint TOTAL 6 NOTE: Visits indicate total known visits. ED/UCC VISIT TRACKING (12 MO.) 02/26/2024 19:45 [facility] [place] TYPE: Emergency COMPLAINT: - FLANK PAIN 02/23/2024 17:31 [facility] [place] TYPE: Emergency COMPLAINT: - ABDOMINAL PAIN 10/19/2023 07:35 [facility] [place] TYPE: Emergency COMPLAINT: - ABDOMINAL PAIN DIAGNOSES: - Constipation, unspecified - Essential (primary) hypertension - Gastro-esophageal reflux disease without esophagitis - terminal makeup operator (current) use of oral hypoglycemic drugs - Other halfway (current) drug therapy - Right upper quadrant pain [facility] DIAGNOSES: - Constipation, unspecified - Hypotension, unspecified - Syncope and collapse - Altered Mental Status 05/23/2023 14:47 [facility] [place] TYPE: Emergency COMPLAINT: - RAPID HEART RATE DIAGNOSES: - Acute ischemic heart disease, unspecified - Bipolar disorder, unspecified - Body mass index [BMI] 31.0-31.9, adult - Gastro-esophageal reflux disease without esophagitis - Hyperlipidemia, unspecified - Irritable bowel syndrome with constipation - MCFP (current) use of oral hypoglycemic drugs - Obesity, unspecified - Other exterminator (current) drug therapy - Palpitations - Type 2 diabetes mellitus without complications 04/06/2023 16:19 [facility] [place] TYPE: Emergency COMPLAINT: - SHORTNESS OF BREATH DIAGNOSES: - Cough, unspecified - Essential (primary) hypertension - Gastro-esophageal reflux disease without esophagitis - Influenza due to other identified influenza virus with other respiratory manifestations - terminal makeup operator (current) use of oral hypoglycemic drugs - Other exterminator (current) drug therapy INPATIENT VISIT TRACKING (12 MO.) 02/23/2024 17:32 [facility] [place] TYPE: Observation COMPLAINT: - URETEROLITHIASIS DIAGNOSES: - Acute kidney failure, unspecified - Calculus of ureter - Essential (primary) hypertension - Gastro-esophageal reflux disease without esophagitis - terminal makeup operator (current) use of oral hypoglycemic drugs - Type 2 diabetes mellitus without complications - Urinary tract infection, site not specified 05/23/2023 19:41 [facility] TYPE: Transplant DIAGNOSES: - NSTEMI [email or web address]
[2024-02-26] MEDS ORDERED: CIPROFLOXACIN250 MG PO (19:52)
[2024-02-26 20:01] LABS: BASOPHILS 0.5 % (0-2); EOSINOPHILS 3.4 % (0-6); HEMATOCRIT 41.9 % (35.0-50.0); HEMOGLOBIN 13.9 g/dL (12.0-18.0); LYMPHOCYTES 31.3 % (24-44); MCHC 33.2 g/dl (30-36); MCV 87.5 fl (81-99); MONOCYTES 8.5 % (0-12); NEUTROPHILS 56.3 % (39-80); PLATELET COUNT 341 K/uL (140-440); RBC 4.79 M/ul (4.3-5.7); RDW 15.3 (10.5-15.0)
[2024-02-26 20:11] LABS: ALBUMIN 3.6 g/dL (3.4-5.0); ALBUMIN/GLOBULIN RATIO 0.8 (1.1-2.4); ANION GAP 12.6 (7-21); BILIRUBIN, TOTAL 0.3 ng/dL (0.2-1.0); BUN/CREATININE RATIO 11.84 (6.0-28.6); CALCIUM 9.5 mg/dL (8.5-10.1); CREATININE, SERUM 1.52 mg/dL (0.70-1.30); POTASSIUM 3.6 mmol/L (3.5-5.1); PROTEIN, TOTAL 8.1 g/dL (6.4-8.2)
[2024-02-26] MEDS ORDERED: LACTATED RINGER'S 1,000 ML IV ONE (20:15)
[2024-02-26] MEDS ORDERED: ondansetron HCL 4 MG/2 ML VIAL IV ONE ×2 (20:15→21:30)
[2024-02-26] MEDS ORDERED: HYDROmorphone HCL 1 MG/ML SYR IV PRN (20:15)
[2024-02-26 21:03] LABS: BILIRUBIN, URINE NEGATIVE (negative); BLOOD/HGB, URINE LARGE (Negative); KETONE, URINE NEGATIVE (Negative); LEUK ESTERASE, URINE TRACE (negative); NITRITE, URINE POSITIVE (negative); PH, URINE 6.5 (5-7)
[2024-02-26 21:08] LABS: RED BLOOD CELLS, URINE >50 /hpf (0-5)
[2024-02-26 21:10] LABS: BACTERIA, URINE RARE /hpf (negative); CRYSTALS, URINE NONE SEEN (0-1+); EPITHELIAL CELLS, URINE SQUAMOUS 1+ /lpf (0-1+)
[2024-02-26 21:11] LABS: CASTS, URINE NONE SEEN \\lpf; COLLECTION TYPE, URINE CLEAN CATCH; REFLEX CULTURE, URINE No (No)
[2024-02-26] MEDS ORDERED: TAMSULOSIN HCL 0.4 MG CAP PO ONE (21:30)
[2024-02-26] MEDS ORDERED: FAMOTIDINE 20 MG/ 2 ML VIAL IV ONE (21:30)
[2024-02-26] MEDS ORDERED: KETOROLAC TROMETHAMINE 15 MG/ML VIAL IV ONE (21:30)
[2024-02-26] MEDS ORDERED: KETOROLAC TROME10 MG PO (21:53)
[2024-02-26 22:02] VITALS: BP 145/99
== END 2024-02-26 22:04 | disposition home or self-care (01) ==
LOC: ED 19:44
PROVIDERS: Internal Medicine
DX: N13.2 Hydronephrosis with renal and ureteral calculous obstruction (principal); I10 Essential (primary) hypertension; K21.9 Gastro-esophageal reflux disease without esophagitis; Z96.0 Presence of urogenital implants; Z87.442 Personal history of urinary calculi; Z79.84 Long term (current) use of oral hypoglycemic drugs; Z79.899 Other long term (current) drug therapy
CPT/HCPCS: 36415; 74176; 80053; 81001; 83690; 85025; 96374; 96375; 96376; 99284-25; J1171; J1885; J2405; J7121

== ENCOUNTER 2024-03-10 09:20 | Day surgery (SDC) | payer OTHER ==
[~2024-03-10] VITALS: Ht 175.3 cm; Wt 93.2 kg
[~2024-03-10 09:20] MED LIST changes: +CEFAZOLIN SODIUM 2 GM/20 ML SYR IV SCH; +CEFAZOLIN SODIUM 2 GM/20 ML SYR ONE; +CIPROFLOXACIN250 MG PO; +DEXAMETHASONE SOD PHOS 4 MG/ML VIAL ONE; +FAMOTIDINE 20 MG/ 2 ML VIAL ONE; +FARXIGA10 MG PO; +HYDROMORPHONE ER8 MG PO; +IBLOOD GLUCOSE TEST STRIP 1 EA TEST VI PRN; +KETOROLAC TROME10 MG PO; +KETOROLAC TROMETHAMINE 30 MG/ML VIAL ONE; +LACTATED RINGER'S 1,000 ML IV ONE; +LACTATED RINGER'S 1,000 ML IV SCH; +LIDOCAINE HCL 1% 5 ML SDV INJ ONE; +METOCLOPRAMIDE HCL 10 MG/2 ML SDV IV PRN; +METOCLOPRAMIDE HCL 10 MG/2 ML SDV ONE; +MIDAZOLAM HCL 2 MG/2 ML VIAL ONE; +MORPHINE SULFATE 10 MG/ML VIAL IV PRN; +NALOXONE HCL 0.4 MG SYR IV PRN; +PROCHLORPERAZINE EDISYLATE 10 MG/2 ML VIAL IV PRN; +droPERidol 5 MG/2 ML VIAL IV PRN; +fentaNYL citrate 100 MCG/2 ML VIAL ONE; +fentaNYL citrate 50 MCG/ML SDV IV PRN; +ondansetron HCL 4 MG/2 ML VIAL IV PRN; +ondansetron HCL 4 MG/2 ML VIAL ONE; +propofoL 200 MG/20 ML VIAL ONE
[2024-03-10] MEDS ORDERED: iopamidoL 30 ML VIAL ONE (09:25)
[2024-03-10] MEDS ORDERED: MORPHINE SULFATE 4 MG/ML VIAL IV PRN (09:45)
[2024-03-10] MEDS ORDERED: HYDROmorphone HCL 1 MG/ML SYR IV PRN ×2 (09:45→11:30)
[2024-03-10] MEDS ORDERED: OXYCODONE/APAP 5/325 TAB PO PRN (09:45)
[2024-03-10] MEDS ORDERED: ondansetron HCL 4 MG/2 ML VIAL IV PRN (09:45)
[2024-03-10] MEDS ORDERED: KETOROLAC TROMETHAMINE 15 MG/ML VIAL IV PRN (09:45)
[2024-03-10 09:54] VITALS: BP 141/89
[2024-03-10] MEDS ORDERED: PHENAZOPYRIDINE HCL 100 MG TAB PO ONE ×2 (10:00→14:00)
[2024-03-10] MEDS ORDERED: ZOLPIDEM TARTRA10 MG PO (10:03)
[2024-03-10] MEDS ORDERED: OLANZAPINE10 MG PO (10:04)
[2024-03-10] MEDS ORDERED: LAMOTRIGINE200 MG PO (10:05)
[2024-03-10] MEDS ORDERED: TOPIRAMATE50 MG PO (10:05)
[2024-03-10] MEDS ORDERED: TAMSULOSIN HCL0.4 MG PO (10:06)
[2024-03-10] MEDS ORDERED: ondansetron HCL 4 MG/2 ML VIAL IV ONE (11:15)
[2024-03-10] MEDS ORDERED: HYDROmorphone HCL 2 MG/ML VIAL IV PRN (11:15)
--- NOTE | 2024-03-10 11:37 | NUR ---
1100-PT REPORTING PAIN IN R FLANK AND RATING AT 8/10. PT REQUESTING PAIN MEDS. CALLED DR. MCKEON AND STONEY AND RECEIVED VERBAL ORDER FROM JIM VILLA CRNA TO GIVE 1-2 MG DILAUDID IV Q2H PRN PAIN AND GIVE ZOFRAN 4MG IV ONCE WITH IT TO PREVENT N/V. VERBAL ORDERS READ BACK TO VERIFY CORRECT. ORDERS ENTERED. PHARMACY CALLED TO CONFIRM ORDERS. 1130-IV PAIN MEDS AND IV ZOFRAN GIVEN PER ORDERS. 1135-PT REPORTS PAIN IMPROVING ALREADY TO 5/10 IN R FLANK. PT REPORTS THIS IS TOLERABLE AT THIS TIME.
[2024-03-10] MEDS ORDERED: SEVOFLURANE 250 ML BTL INH ONE (13:57)
--- NOTE | 2024-03-10 14:38 | NUR ---
03/10/24 1438 Rosemary Barragan 1414-PT ARRIVES TO PACU VIA STRETCHER, RESTING SEMI FOWLERS, PT DROWSY BUT ABLE TO ANSWER QUESTIONS. PT DENIES PAIN OR NAUSEA. VSS ON 10L VIA MASK, RR EVEN AND UNLABORED. 1425-PT TITRATED TO RA, VSS. 1435-PT DESATS TO 84% ON RA, PLACED ON 2L VIA NC SATS IMPROVED TO 94%.
[2024-03-10 15:00] VITALS: BP 149/101
--- NOTE | 2024-03-10 15:15 | NUR ---
1500-PT RETRUNED TO DS AAOX3 ON 2L/NC WITH SATS IN UPPER 90'S. PT ANSWERING QUESTIONS APPROPRIATELY AND ABLE TO MAKE NEEDS KNOWN. PT SIPPING ON ICE WATER. REPORT RECEIVED FROM PATIENT TRANSITION SPECIALIST AND SURGICAL SITE VISUALIZED WITH PATIENT TRANSITION SPECIALIST. EXTERNAL STRINGS OF URETERAL STENT FIRMLY IN PLACE WITH STERI STRIPS TO HEAD PREPUCE OF PENIS. SMALL AMT OF SANGUINOUS DRAIANGE OBSERVED ON STERI STRIPS. PT DENIES NAUSEA BUT REPORTS PAIN 8/10 AND REQUESTING PAIN MEDS. PT ALSO REQUESTING TO USE URINAL. PT VOIDED APPROX 250 MLS OF BLOOD TINGED URINE WITH A FEW SMALL PEA SIZED OR SMALLER CLOTS NOTED. PT REPORTS PAIN WITH URINATION. IV SITE ASSESSED. VS TAKEN. AT BEDSIDE. BED IN LOW POSITION, WHEELS LOCKED, CALL LIGHT WITHIN PT REACH. ALL QUESTIONS ANSWERED. PT EATING APPLESAUCE. 1505-O2 TITRATED TO RA. RR APPEARS EVENA ND UNLABORED. SATS STEADY IN MID 90'S. PT WITH USE OF URINAL AGAIN WITH ANOTHER 350 ML OF BLOOD TINGED URINE WITH A FEW SMALL CLOTS PRESENT IN URINE. 1512-PO PAIN MEDS AND SCHEDULED DOSE OF PYRIDIUM GIVEN. 1515-SATS REMAIN 96% OR GREATER ON RA. RESPS CONTINUE TO APPEAR EVEN AND UNLABORED. RX PROVIDED TO PTS WHO IS LEAVING TO TAKE THEM TO PHARMACY. BED IN LOW POSITION, WHEELS LOCKED, CALL LIGHT WITHIN PT REACH. ALL QUESTIONS ANSWER. PT RESTING IN BED AND WATCHING TV.
[2024-03-10 16:10] VITALS: BP 155/90
[2024-03-10] MEDS ORDERED: CIPRO250 MG PO (16:16)
[2024-03-10] MEDS ORDERED: DILAUDID2 MG PO (16:17)
--- NOTE | 2024-03-10 16:55 | NUR ---
1610-INTO PTS ROOM FOR ROUTINE REASSESSMENT. VS TAKEN. IV SITE ASSESSED AND SL'D. PT TAKING PO FLUIDS AND FOOD WITHOUT ISSUES AND DENIES NAUSEA WHEN ASKED. PT REPORTS PAIN IMPROVED TO 6/10. PT INFORMS THIS RN THAT HE WOULD LIKE TO GO HOME THOUGH. PT EDUCATED ON NEED TO COMPLETE DISCHARGE EDUCATION AND REMOVE IV FIRST. PT AWKNOWLEDGED UNDERSTANDING OF THIS. URETHRAL OPENING OBSERVED. EXTERNAL STENT STRING STILL FIRMLY ATTACHED TO PREPUCE OF PENIS WITH SS. SMALL AMT OF SANGUINEOUS DRAINAGE REMAINS PRESENT ON STERI STRIPS. ALL QUESTIONS ANSWERED. 1620-PT DRESSING WITH WIFES ASSISTANCE IN ROOM. BED IN LOW POSITION, WHEELS LOCKED, CALL LIGHT WITHIN PT REACH WITH PERSONAL BELONINGS AND AT BEDSIDE. 1627-INTO PTS ROOM FOR DC EDUCATION. PT AND NOT IN ROOM. CALL LIGHT HEARD IN RESTROOM WHILE IN PTS ROOM. CALL LIGHT ANSWERED AND PT NOTED TO BE STANDING OVER TOILET WITH AND VISIBLE UPSET. PT YELLING AND APPEARED SCARRED. PT YELLED "IM BLEEDING ALOT, ITS BLEEDING THROUGH ALL THE PADS" NOTED BLOOD IN TOILET AND SMALL AMT ON FLOOR. STRING TO STENT STILL FIRMLY ATTACHED AND NO CHANGE IN EXPOSED LENGTH APPEARS EVIDENT. HEAD OF PTS PENIS GENTLY LIFTED TO OBSERVE URETHRAL OPENING AND NOTED WITH SLIGHT PRESSURE TO THIS AREA, 3 SQUIRTS OF BLOOD NOTED FROM URETHRAL OPENING UNTIL HAND REMOVED. PT NOTED WITH SLOW CONTINUOUS DRIBBLING AND BLOOD FROM URETHRA WHILE RESTING ON BED IN PTS UNDERWEAR. PT ASSISTED BACK TO BED, CALL LIGHT WITHIN PT REACH, AND REMAINS AT BEDSIDE. PT INFORMED THIS RN WOULD CONTACT DR. MCKEON AND LET HER KNOW. PT SCREAMING AND CRYING HYSTERICALLY. PT REASSURED. PT YELLING "IT HURTS SO MUCH, ITS 8/10 NOW". PT AGAIN REASSUSRED AND INFORMED THIS RN WOULD CALL DR. MCKEON TO REPORT THE ABOVE MENTIONED. 1632-DR. MCKEON NOTIFIED OF BLEEDING. DR WITH ADDITIONAL REQUEST FOR INFORMATION. PROVIDER PLACED ON HOLD AND INTO PTS ROOM. OBSERVED SLOWED BLEEDING. PT ASKED IF HE WAS STRAINING WITH VOID IN RESTROOM. PT DENIED. PT ASKED TO STAND AT BEDSIDE TO SEE IF POSITION CHANGE WOULD REPLICATE PRIOR HAPPENINGS. SMALL INFREQUENT DRIPS OF BLOOD FROM URETHRA NOTED. HEAD OF PTS PENIS MOVED SLIGHTLY AND NOTED KIDNEY SORIANO SIZE CLOT BEGIN TO EMERGE FROM URETHRAL OPENING WITH SLIGHT PRESSURE FROM FINGERS HOLD HEAD OF PENSI FOR ASSESSMENT. PT BEGAN SCREAMING AGAIN AND CRYING HYSTERICALLY PT REASSURED AND CALMED SOME. DR. MCKEON UPDATED. NO NEW ORDERS RECEIVED. DR. MCKEON WITH REQUEST TO PROVIDE DC EDUCATION ON NO USEOF EXCEDRIN OR OTHER NSAIDS UNTIL STENT HAS BEEN OUT FOR A WEEK OR SO TO PREVENT FIRTHER BLEEDING AND TO INCREASE FLUID INTAKE TO FLUSH CLOTS AND DECREASE BLEEDING IN BLADDER. 1645-PT INFORMED OF DR. MCKEON ADVISEMENTS AND VERBALIZED UNDERSTANDING. PT REPORTING 8/10 PAIN. 1655-INTO PTS ROOM FOR PAIN MEDICATION ADMINISTRATION WELL ROUTINE REASSESSMENT. IV PAIN MEDS GIVEN AND IV FLUSHED WITH 10 ML NS BEFORE AND AFTER ADMINISTRATION. VS TAKEN. URETHRAL OPENING VISUALIZED AND AND BLEEDING APPEARS TO HAVE STOPPED WITH PREVIOUSLY MENTION KIDNEY SORIANO SIZED CLOT EXPELLED. PT PROVIDED ADDITIONAL NATTY-PADS FOR UNDERWEAR. AT BEDSIDE. CALL LIGHT WITHIN PT REACH. BED IN LOW POSITION, WHEELS LOCKED AND PT EATING SNACKS PROVIDED BY . PT CONT TO DENY NAUSEA WHEN ASKED. FLUIDS AT BEDSIDE AND ENOCURAGED. PROVIDED PT WITH ROOTBEAR WELL TO DRINK.
[2024-03-10 16:56] VITALS: BP 141/97
[2024-03-10 17:25] VITALS: BP 143/98
--- NOTE | 2024-03-10 17:36 | NUR ---
1725-INTO PTS ROOM FOR REASSESSMENT AND DC EDUCATION. PT REPORTS IMPROVEMENT IN PAIN AT 4/10. PT REPORTS THIS TO BE A TOLERABLE LEVEL OF PAIN FOR HIM. VS TAKEN. IV SITE ASSESSED. URETHRAL OPENING WITHOUT FURTHER BLEEDING VISUALIZED. PT PROVIDED DC EDUCATION, INSTRUCTIONS ON WHEN TO REMOVE STENT, AND PAIN NEW RX'S. PT AND REPORT UNDERSTANDING. ALL QUESTIONS ANSWERED. 1732-PT UPTO RESTROOM ABRUPTLY. INTO RESTROOM WITH PT. PT REPORTING URGENCY WITH NEED TO VOID. 1735-PT OUT OF RESTROOM AND PT REPORTS NO PAIN OR BLEEDING WITH URINATION THIS TIME AND NOTED TO BE SMILING. PT REPORTS RELIEF WITH THIS IMPROVEMENT. 1736-PT SITTING UP ON EOB. IV REMOVED. TIP APPEARS INTACT. PRESSURE DRSG APPLIED WITH GAUZE AND COBAN. PT REPORTS HIS RIDE IS HERE.
--- NOTE | 2024-03-10 17:40 | NUR ---
1740-PT DISCHARGED FROM DS VIA WC TO PASSENGER SIDE OF MEDICAL [facility]AXI. ACCOMPANIED PT ADDITIONAL PASSENGER FOR TRANSPORT. ALL PERSONAL BELONINGS TAKEN WITH PT. ALL QUESTIONS ANSWERED.
--- NOTE | 2024-03-10 17:48 | NUR ---
DR. MCKEON NOTIFIED OF IMPROVMENT AND PTS DISCHARGE HOME.
[2024-03-13 11:23] LABS: CALCULI MASS 9 mg (())
== END 2024-03-10 17:40 | disposition home or self-care (01) ==
LOC: DS 09:20 → OPS 09:20 → DS 11:30 → OPS 11:30
PROVIDERS: ATTEND Urology
PROC: 0TC68ZZ Extirpation of Matter from Right Ureter, Via Natural or Artificial Opening Endoscopic (ICD-10-PCS; principal; 2024-03-10 11:30)
PROC: BT1DZZZ Fluoroscopy of Right Kidney, Ureter and Bladder (ICD-10-PCS; 2024-03-10 11:30)
DX: N13.2 Hydronephrosis with renal and ureteral calculous obstruction (principal); N28.9 Disorder of kidney and ureter, unspecified; I10 Essential (primary) hypertension; E11.9 Type 2 diabetes mellitus without complications
CPT/HCPCS: 00910; 74430; 82365; C1769; C2617; J0690; J1100; J1171; J1885; J2250; J2405; J2704; J2765; J3010; J7121; Q9958

== ENCOUNTER 2024-06-06 16:35 | Emergency (ER) | payer OTHER ==
[~2024-06-06] VITALS: Ht 175.3 cm; Wt 90.4 kg
[~2024-06-06 16:35] MED LIST changes: -CEFAZOLIN SODIUM 2 GM/20 ML SYR IV SCH; -CEFAZOLIN SODIUM 2 GM/20 ML SYR ONE; +CIPRO250 MG PO; -DEXAMETHASONE SOD PHOS 4 MG/ML VIAL ONE; +DILAUDID2 MG PO; -FAMOTIDINE 20 MG/ 2 ML VIAL ONE; -IBLOOD GLUCOSE TEST STRIP 1 EA TEST VI PRN; -KETOROLAC TROMETHAMINE 30 MG/ML VIAL ONE; -LACTATED RINGER'S 1,000 ML IV ONE; -LACTATED RINGER'S 1,000 ML IV SCH; -LIDOCAINE HCL 1% 5 ML SDV INJ ONE; -METOCLOPRAMIDE HCL 10 MG/2 ML SDV IV PRN; -METOCLOPRAMIDE HCL 10 MG/2 ML SDV ONE; -MIDAZOLAM HCL 2 MG/2 ML VIAL ONE; -MORPHINE SULFATE 10 MG/ML VIAL IV PRN; -NALOXONE HCL 0.4 MG SYR IV PRN; +OLANZAPINE10 MG PO; -PROCHLORPERAZINE EDISYLATE 10 MG/2 ML VIAL IV PRN; +TOPIRAMATE50 MG PO; +ZOLPIDEM TARTRA10 MG PO; -droPERidol 5 MG/2 ML VIAL IV PRN; -fentaNYL citrate 100 MCG/2 ML VIAL ONE; -fentaNYL citrate 50 MCG/ML SDV IV PRN; -ondansetron HCL 4 MG/2 ML VIAL IV PRN; -ondansetron HCL 4 MG/2 ML VIAL ONE; -propofoL 200 MG/20 ML VIAL ONE
[2024-06-06] MEDS ORDERED: MORPHINE SULFATE 4 MG/ML VIAL IV ONE (19:00)
[2024-06-06] MEDS ORDERED: KETOROLAC TROMETHAMINE 30 MG/ML VIAL IV ONE (19:00)
[2024-06-06] MEDS ORDERED: ondansetron HCL 4 MG/2 ML VIAL IV ONE (19:00)
[2024-06-06] MEDS ORDERED: SODIUM CHLORIDE 0.9% 1,000 ML IV PRN (19:00)
[2024-06-06 19:23] LABS: BASOPHILS 0.3 % (0-2); EOSINOPHILS 2.8 % (0-6); HEMATOCRIT 41.1 % (35.0-50.0); LYMPHOCYTES 37.9 % (24-44); MCH 29.8 (27-36); MCHC 34.1 g/dl (30-36); MCV 87.5 fl (81-99); MONOCYTES 7.1 % (0-12); NEUTROPHILS 51.9 % (39-80); PLATELET COUNT 256 K/uL (140-440); RBC 4.69 M/ul (4.3-5.7); RDW 14.1 (10.5-15.0)
[2024-06-06 19:38] LABS: ALBUMIN/GLOBULIN RATIO 1.14 (1.1-2.4); ANION GAP 12.8 (7-21); BILIRUBIN, TOTAL 0.4 mg/dL (0.2-1.0); BUN/CREATININE RATIO 15.38 (6.0-28.6); CALCIUM 9.2 mg/dL (8.5-10.1); CREATININE, SERUM 1.43 mg/dL (0.70-1.30); POTASSIUM 3.8 mmol/L (3.5-5.1); PROTEIN, TOTAL 7.5 g/dL (6.4-8.2)
[2024-06-06] MEDS ORDERED: LIDOCAINE 2% VISCOUS 6 ML SYR TOP ONE (20:15)
[2024-06-06 20:26] LABS: BILIRUBIN, URINE NEGATIVE (negative); BLOOD/HGB, URINE LARGE (Negative); KETONE, URINE NEGATIVE (Negative); LEUK ESTERASE, URINE NEGATIVE (negative); NITRITE, URINE NEGATIVE (negative)
[2024-06-06 20:33] LABS: RED BLOOD CELLS, URINE >50 /hpf (0-5)
[2024-06-06 20:34] LABS: BACTERIA, URINE NONE SEEN /hpf (negative); CASTS, URINE NONE SEEN \\lpf; COLLECTION TYPE, URINE CLEAN CATCH; CRYSTALS, URINE NONE SEEN (0-1+); EPITHELIAL CELLS, URINE NONE SEEN /lpf (0-1+); REFLEX CULTURE, URINE Yes (No)
[2024-06-06] MEDS ORDERED: PERCOCET 5-3251 EACH PO (20:51)
[2024-06-06] MEDS ORDERED: CIPRO500 MG PO (20:51)
[2024-06-06] MEDS ORDERED: FLOMAX0.4 MG PO (20:51)
[2024-06-06] MEDS ORDERED: CIPROFLOXACIN 500 MG TAB PO ONE (21:00)
[2024-06-06] MEDS ORDERED: ONDANSETRON 4 MG HOME.PACK SL ONE (21:00)
[2024-06-06] MEDS ORDERED: OXYCODONE/ACETAMINOPHEN 1 TAB HOME.PACK PO ONE (21:00)
[2024-06-06] MEDS ORDERED: TAMSULOSIN HCL 0.4 MG CAP PO ONE (21:00)
[2024-06-06 21:15] VITALS: BP 124/87
[2024-06-07] MEDS ORDERED: PYRIDIUM200 MG PO (01:35)
== END 2024-06-06 21:15 | disposition home or self-care (01) ==
LOC: ED 16:35
PROVIDERS: Emergency Medicine
DX: N13.2 Hydronephrosis with renal and ureteral calculous obstruction (principal); I10 Essential (primary) hypertension; Z88.8 Allergy status to other drugs, medicaments and biological substances; Z79.899 Other long term (current) drug therapy
CPT/HCPCS: 36415; 51701; 51798; 74176; 80053; 81001; 85025; 87088; 99284-25; A9270; J1885; J2270; J2405; J7030

== ENCOUNTER 2024-06-23 17:39 | Emergency (ER) | payer OTHER ==
[~2024-06-23] VITALS: Ht 175.3 cm; Wt 90.0 kg
[~2024-06-23 17:39] MED LIST changes: +PERCOCET 5-3251 EACH PO
--- OUTSIDE RECORDS SUMMARY | 2024-06-23 17:46 | XMS ---
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 EMatthew VISIT COUNT (12 MO.) [address] [place] [address] TOTAL 5 NOTE: Visits indicate total known visits. ED/UCC VISIT TRACKING (12 MO.) 06/23/2024 17:[address] [facility] [place] TYPE: Emergency COMPLAINT: - ALTERED LOC 06/06/2024 16:[address] [facility] [place] TYPE: Emergency COMPLAINT: - BLOOD IN URINE DIAGNOSES: - Allergy status to other drugs, medicaments and biological substances - Essential (primary) hypertension - Hydronephrosis with renal and ureteral calculous obstruction - Other emt intermediate (current) drug therapy - Right lower quadrant pain 02/26/2024 19:45 [facility] [place] TYPE: Emergency COMPLAINT: - FLANK PAIN DIAGNOSES: - Essential (primary) hypertension - Gastro-esophageal reflux disease without esophagitis - Hydronephrosis with renal and ureteral calculous obstruction - long term acute care registered nurse (current) use of oral hypoglycemic drugs - Other intermediate (current) drug therapy - Personal history of urinary calculi - Presence of urogenital implants - Right lower quadrant pain 02/23/2024 17:31 [facility] [place] TYPE: Emergency COMPLAINT: - ABDOMINAL PAIN 10/19/2023 07:35 [facility] [place] TYPE: Emergency COMPLAINT: - ABDOMINAL PAIN DIAGNOSES: - Constipation, unspecified - Essential (primary) hypertension - Gastro-esophageal reflux disease without esophagitis - group home (current) use of oral hypoglycemic drugs - Other emt intermediate (current) drug therapy - Right upper quadrant pain INPATIENT VISIT TRACKING (12 MO.) 02/23/2024 17:32 [facility] [place] TYPE: Observation COMPLAINT: - URETEROLITHIASIS DIAGNOSES: - Acute kidney failure, unspecified - Calculus of ureter - Essential (primary) hypertension - Gastro-esophageal reflux disease without esophagitis - long term acute care registered nurse (current) use of oral hypoglycemic drugs - Type 2 diabetes mellitus without complications - Urinary tract infection, site not specified [email or web address]
[2024-06-23 18:05] LABS: MCH 29.9 (27-36); MCHC 34.1 g/dl (30-36)
[2024-06-23 18:07] LABS: HEMOGLOBIN 11.9 g/dL (12.0-18.0); MCV 87.8 fl (81-99); PLATELET COUNT 295 K/uL (140-440); RBC 3.99 M/ul (4.3-5.7); RDW 13.9 (10.5-15.0)
[2024-06-23 18:14] LABS: ALBUMIN 3.6 g/dL (3.4-5.0); ALBUMIN/GLOBULIN RATIO 0.92 (1.1-2.4); ALCOHOL, MEDICAL <3 ng/dL (<3); ALKALINE PHOSPHATASE 119 U/L (46-116); ALT (SGPT) 31 U/L (14-59); ANION GAP 11.7 (7-21); AST (SGOT) 21 U/L (15-37); BILIRUBIN, TOTAL 0.6 mg/dL (0.2-1.0); BUN/CREATININE RATIO 13.97 (6.0-28.6); CALCIUM 8.8 mg/dL (8.5-10.1); CARBON DIOXIDE 27 mmol/L (21-32); CHLORIDE 101 mmol/L (98-107); CREATININE, SERUM 1.86 mg/dL (0.70-1.30); GLOMERULAR FILTRATION RATE,EST 44 mL/min (>60); POTASSIUM 3.7 mmol/L (3.5-5.1); PROTEIN, TOTAL 7.5 g/dL (6.4-8.2); UREA NITROGEN 26 mg/dL (7-18)
[2024-06-23] MEDS ORDERED: NALOXONE HCL 2 MG/2 ML SYR IV ONE (18:15)
[2024-06-23 18:24] LABS: BANDS, MANUAL DIFF 3; EOSINOPHILS, MANUAL DIFF 4; LYMPHOCYTES, MANUAL DIFF 30; MONOCYTES, MANUAL DIFF 6; NEUTROPHILS, MANUAL DIFF 57
[2024-06-23 18:56] LABS: BILIRUBIN, URINE NEGATIVE (negative); BLOOD/HGB, URINE TRACE-I (Negative); KETONE, URINE SMALL (Negative); LEUK ESTERASE, URINE TRACE (negative); NITRITE, URINE POSITIVE (negative)
[2024-06-23 19:04] LABS: CRYSTALS, URINE CALCIUM OXALATE 4+ (0-1+); EPITHELIAL CELLS, URINE SQUAMOUS 1+ /lpf (0-1+)
[2024-06-23 19:05] LABS: BACTERIA, URINE RARE /hpf (negative); CASTS, URINE HYALINE 1+ \\lpf; COLLECTION TYPE, URINE CLEAN CATCH; REFLEX CULTURE, URINE No (No)
[2024-06-23] MEDS ORDERED: LEVETIRACETAM IV ONE (19:15)
[2024-06-23] MEDS ORDERED: DEXTROSE 5% IV ONE (19:15)
[2024-06-23 19:25] LABS: AMPHETAMINES, URINE NEGATIVE (NEGATIVE); BARBITURATES, URINE NEGATIVE (NEGATIVE); BENZODIAZEPINE, URINE POSITIVE (NEGATIVE); BUPRENORPHINE, URINE NEGATIVE (NEGATIVE); CANNABINOID, URINE POSITIVE (NEGATIVE); COCAINE, URINE NEGATIVE (NEGATIVE); ECSTASY, URINE POSITIVE (NEGATIVE); FENTANYL, URINE NEGATIVE (NEGATIVE); METHADONE, URINE NEGATIVE (NEGATIVE); OPIATES, URINE POSITIVE (NEGATIVE); OXYCODONE, URINE POSITIVE (NEGATIVE); PHENCYCLIDINE, URINE NEGATIVE (NEGATIVE)
[2024-06-23] MEDS ORDERED: HYDROCODONE/APAP 10/325 1 TAB PO ONE (19:45)
[2024-06-23] MEDS ORDERED: NALOXONE HCL 2 MG/2 ML SYR IV PRN (23:00)
--- NOTE | 2024-06-24 13:05 | EKG ---
[facility] [address] [facility] [place] [address] Signed Normal sinus rhythm RSR' or QR pattern in V1 suggests right ventricular conduction delay T wave abnormality, consider anterior ischemia Prolonged QT Abnormal ECG When compared with ECG of 24-FEB-2024 10:27, T wave inversion now evident in Anterior leads Confirmed by Yaa Londono DO ([id number]) on 06/24/2024 1:05:45 PM Electronically Signed By: YAA LONDONO DO 06/24/24 1305 PATIENT NAME: MICHELE PITT Electrocardiogram DATE OF : 73 PHYSICIAN: YAA LONDONO DO REPORT #: [id number] REPORT IS CONFIDENTIAL AND NOT TO BE RELEASED WITHOUT AUTHORIZATION
[2024-06-24 16:55] VITALS: BP 104/76
== END 2024-06-24 16:59 | disposition short-term general hospital (02) ==
LOC: ED 17:39
PROVIDERS: Emergency Medicine
DX: R56.9 Unspecified convulsions (principal); R41.82 Altered mental status, unspecified; I10 Essential (primary) hypertension; Z79.84 Long term (current) use of oral hypoglycemic drugs; Z79.2 Long term (current) use of antibiotics; Z79.899 Other long term (current) drug therapy
CPT/HCPCS: 36415; 51701; 70450; 71045; 80053; 80307; 81001; 85025; 93005; 93010; 99285-25; G0480; J1953; J2310

== ENCOUNTER 2024-09-10 16:58 | Emergency (ER) | payer OTHER ==
[~2024-09-10] VITALS: Ht 175.3 cm; Wt 90.0 kg
[2024-09-10] MEDS ORDERED: LIDODERM1 EACH TOP (19:51)
[2024-09-10] MEDS ORDERED: HYDROCODON-ACE1 EA10 PO (19:51)
[2024-09-10] MEDS ORDERED: NAPROSYN500 MG PO (19:51)
[2024-09-10] MEDS ORDERED: KETOROLAC TROMETHAMINE 15 MG/ML VIAL IM ONE (20:00)
[2024-09-10] MEDS ORDERED: HYDROCODONE/ACETA 5/325 TAB PO ONE (20:00)
[2024-09-10] MEDS ORDERED: HYDROCODONE/ACETA 5/325 TAB ONE (20:07)
[2024-09-10 20:19] VITALS: BP 126/78
== END 2024-09-10 20:20 | disposition home or self-care (01) ==
LOC: ED 16:58
DX: S30.0XXA Contusion of lower back and pelvis, initial encounter (principal); I10 Essential (primary) hypertension; K21.9 Gastro-esophageal reflux disease without esophagitis; W01.0XXA Fall on same level from slipping, tripping and stumbling without subsequent striking against object, initial encounter; Z79.899 Other long term (current) drug therapy; Z79.84 Long term (current) use of oral hypoglycemic drugs
CPT/HCPCS: 72100; 72220; 96372; 99283; J1885

== ENCOUNTER 2024-11-18 14:01 | Emergency (ER) | payer OTHER ==
[~2024-11-18] VITALS: Ht 175.3 cm; Wt 85.0 kg
[~2024-11-18 14:01] MED LIST changes: +LIDODERM1 EACH TOP; +NAPROSYN500 MG PO
[2024-11-18] MEDS ORDERED: AJOVY AUTO225 MG/1.5 SQ (15:24)
[2024-11-18] MEDS ORDERED: LAMOTRIGINE100 MG PO (15:25)
[2024-11-18] MEDS ORDERED: OXYBUTYNIN CHLOR5 MG PO (15:25)
[2024-11-18] MEDS ORDERED: KETOROLAC TROMETHAMINE 15 MG/ML VIAL IV ONE (15:30)
[2024-11-18] MEDS ORDERED: SODIUM CHLORIDE 0.9% 1,000 ML IV PRN (15:30)
[2024-11-18 15:55] LABS: BASOPHILS 0.7 % (0.2-1.2); BLOOD/HGB, URINE NEGATIVE (Negative); EOSINOPHILS 1.9 % (0.8-7.0); KETONE, URINE NEGATIVE (Negative); LEUK ESTERASE, URINE NEGATIVE (negative); LYMPHOCYTES 28.7 % (21.8-53.1); MCH 29.8 PG (25.7-32.2); MCHC 31.9 g/dL (32.3-36.5); MCV 93.6 fL (79.0-92.2); MONOCYTES 10.2 % (5.3-12.2); NEUTROPHILS 58.0 % (34.0-67.9); NITRITE, URINE NEGATIVE (negative); RBC 4.36 M/uL (4.63-6.08)
[2024-11-18 16:10] LABS: ALT (SGPT) 58.0 U/L (14-59); AST (SGOT) 37.0 U/L (15-37); GLOMERULAR FILTRATION RATE,EST 94.0 mL/min (>60); PROTEIN, TOTAL 7.8 g/dL (6.4-8.2); UREA NITROGEN 12.0 mg/dL (7-18)
[2024-11-18] MEDS ORDERED: MORPHINE SULFATE 4 MG/ML VIAL IV ONE (16:30)
[2024-11-18 17:57] VITALS: BP 118/84
== END 2024-11-18 17:53 | disposition home or self-care (01) ==
LOC: ED 14:01
PROVIDERS: Emergency Medicine
DX: R10.A3 Flank pain, bilateral (principal); K59.00 Constipation, unspecified; I10 Essential (primary) hypertension; I25.2 Old myocardial infarction; Z79.899 Other long term (current) drug therapy; Z79.84 Long term (current) use of oral hypoglycemic drugs
CPT/HCPCS: 36415; 74177; 80053; 81003; 85025; 96374; 96375; 96376; 99284-25; J1885; J2270; J2405; J7030; Q9967

== ENCOUNTER 2024-11-21 18:02 | Emergency (ER) | payer OTHER ==
[~2024-11-21] VITALS: Ht 175.3 cm; Wt 85.0 kg
[~2024-11-21 18:02] MED LIST changes: +AJOVY AUTO225 MG/1.5 SQ; +LAMOTRIGINE100 MG PO; +OXYBUTYNIN CHLOR5 MG PO
--- OUTSIDE RECORDS SUMMARY | 2024-11-21 18:09 | XMS ---
PreManage Notification: MICHELE PITT Security Phlebotomist Lab Assistant Events No recent Security Events currently on file CRITERIA MET - [facility] - 2 Visits in 30 Days CARE PROVIDERS -[facility] Dentist: Material Handling Equipment [facility] PHONE: [phone] -[place]- Dentist: Material Handling Equipment [facility] PHONE: [phone] Rachel has no Care Guidelines for this patient. EMatthew VISIT COUNT (12 MO.) [address] [place] [address] TOTAL 7 NOTE: Visits indicate total known visits. ED/UCC VISIT TRACKING (12 MO.) 11/21/2024 18:03 [facility] [place] TYPE: Emergency COMPLAINT: - MEDICAL CLEARANCE 11/18/2024 14:01 [facility] [place] TYPE: Emergency COMPLAINT: - RIGHT FLANK PAIN DIAGNOSES: - Constipation, unspecified - Essential (primary) hypertension - Flank pain, bilateral - alf (current) use of oral hypoglycemic drugs - Old myocardial infarction - Other oysterman (current) drug therapy 09/10/2024 17:[address] [facility] [place] TYPE: Emergency COMPLAINT: - FALL DIAGNOSES: - Contusion of lower back and pelvis, initial encounter - Essential (primary) hypertension - Fall on same level from slipping, tripping and stumbling without subsequent striking against object, initial encounter - Gastro-esophageal reflux disease without esophagitis - alf (current) use of oral hypoglycemic drugs - Other oysterman (current) drug therapy - Paresthesia of skin 06/23/2024 17:[address] [facility] [place] TYPE: Emergency COMPLAINT: - ALTERED LOC DIAGNOSES: - Altered mental status, unspecified - Essential (primary) hypertension - alf (current) use of antibiotics - intermediate card tender (current) use of oral hypoglycemic drugs - Other oysterman (current) drug therapy - Unspecified convulsions 06/06/2024 16:[address] [facility] [place] TYPE: Emergency COMPLAINT: - BLOOD IN URINE DIAGNOSES: - Allergy status to other drugs, medicaments and biological substances - Essential (primary) hypertension - Hydronephrosis with renal and ureteral calculous obstruction - Other longterm (current) drug therapy - Right lower quadrant pain 02/26/2024 19:45 [facility] [place] TYPE: Emergency COMPLAINT: - FLANK PAIN DIAGNOSES: - Essential (primary) hypertension - Gastro-esophageal reflux disease without esophagitis - Hydronephrosis with renal and ureteral calculous obstruction - alf (current) use of oral hypoglycemic drugs - Other longterm (current) drug therapy - Personal history of urinary calculi - Presence of urogenital implants - Right lower quadrant pain 02/23/2024 17:31 [facility] [place] TYPE: Emergency COMPLAINT: - ABDOMINAL PAIN INPATIENT VISIT TRACKING (12 MO.) 06/24/2024 19:09 [facility] [place] TYPE: Medical Surgical COMPLAINT: - new onset seizure,MILEY DIAGNOSES: - new onset seizure,MILEY 02/23/2024 17:[address] [facility] [place] TYPE: Observation COMPLAINT: - URETEROLITHIASIS DIAGNOSES: - Acute kidney failure, unspecified - Calculus of ureter - Essential (primary) hypertension - Gastro-esophageal reflux disease without esophagitis - intermediate card tender (current) use of oral hypoglycemic drugs - Type 2 diabetes mellitus without complications - Urinary tract infection, site not specified [id number]
[2024-11-21 20:08] LABS: BASOPHILS 0.7 % (0.2-1.2); EOSINOPHILS 2.7 % (0.8-7.0); LYMPHOCYTES 35.2 % (21.8-53.1); MCH 29.9 PG (25.7-32.2); MCHC 31.8 g/dL (32.3-36.5); MCV 94.0 fL (79.0-92.2); MONOCYTES 7.8 % (5.3-12.2); NEUTROPHILS 53.3 % (34.0-67.9); RBC 4.15 M/uL (4.63-6.08)
[2024-11-21 20:34] LABS: ALCOHOL, MEDICAL <3 ng/dL (<3); ALT (SGPT) 36 U/L (14-59); AST (SGOT) 18 U/L (15-37); GLOMERULAR FILTRATION RATE,EST 92 mL/min (>60); PROTEIN, TOTAL 7.5 g/dL (6.4-8.2); TSH, 3RD GENERATION 1.913 uIU/mL (0.358-3.740); UREA NITROGEN 12 mg/dL (7-18)
[2024-11-21 21:52] LABS: BLOOD/HGB, URINE TRACE-I (Negative); KETONE, URINE NEGATIVE (Negative); LEUK ESTERASE, URINE SMALL (negative); NITRITE, URINE NEGATIVE (negative)
[2024-11-21 21:57] LABS: BACTERIA, URINE 1+ /hpf (negative); CASTS, URINE NONE SEEN \\lpf; CRYSTALS, URINE NONE SEEN (0-1+); EPITHELIAL CELLS, URINE SQUAMOUS 1+ /lpf (0-1+); REFLEX CULTURE, URINE Yes (No)
[2024-11-21 22:11] LABS: AMPHETAMINES, URINE NEGATIVE (NEGATIVE); BARBITURATES, URINE NEGATIVE (NEGATIVE); BENZODIAZEPINE, URINE NEGATIVE (NEGATIVE); CANNABINOID, URINE POSITIVE (NEGATIVE); COCAINE, URINE NEGATIVE (NEGATIVE); ECSTASY, URINE NEGATIVE (NEGATIVE); FENTANYL, URINE NEGATIVE (NEGATIVE); METHADONE, URINE NEGATIVE (NEGATIVE); OPIATES, URINE NEGATIVE (NEGATIVE); OXYCODONE, URINE NEGATIVE (NEGATIVE); PHENCYCLIDINE, URINE NEGATIVE (NEGATIVE)
[2024-11-22] MEDS ORDERED: ACETAMINOPHEN 500 MG TAB PO ONE ×2 (01:30→17:30)
[2024-11-22] MEDS ORDERED: METOPROLOL SUCCINATE 25 MG TABCR PO SCH (09:00)
[2024-11-22] MEDS ORDERED: lamoTRIgine 100 MG TAB PO SCH ×2 (09:00→21:00)
[2024-11-22] MEDS ORDERED: OLANZapine 10 MG TAB PO SCH (21:00)
[2024-11-22] MEDS ORDERED: ZOLPIDEM TARTRATE 5 MG TAB PO SCH (21:00)
[2024-11-23 06:13] VITALS: BP 128/94
== END 2024-11-23 06:13 ==
LOC: ED 18:02
PROVIDERS: Emergency Medicine
DX: F32.A Depression, unspecified (principal); Z87.820 Personal history of traumatic brain injury; I10 Essential (primary) hypertension; I25.2 Old myocardial infarction; K21.9 Gastro-esophageal reflux disease without esophagitis; Z79.84 Long term (current) use of oral hypoglycemic drugs; Z79.899 Other long term (current) drug therapy
CPT/HCPCS: 36415; 80053; 80307; 81001; 84443; 85025; 87088; 99285; A9270; G0480

== ENCOUNTER 2025-01-24 17:13 | Emergency (ER) | payer OTHER ==
[~2025-01-24] VITALS: Ht 175.3 cm; Wt 81.7 kg
[2025-01-24 17:28] LABS: BASOPHILS 0.7 % (0.2-1.2); EOSINOPHILS 2.6 % (0.8-7.0); LYMPHOCYTES 30.9 % (21.8-53.1); MCH 28.4 PG (25.7-32.2); MCHC 32.0 g/dL (32.3-36.5); MCV 88.7 fL (79.0-92.2); MONOCYTES 6.5 % (5.3-12.2); NEUTROPHILS 58.8 % (34.0-67.9); RBC 4.44 M/uL (4.63-6.08)
[2025-01-24 17:55] LABS: ALCOHOL, MEDICAL <3 mg/dL (<3); ALT (SGPT) 32 U/L (14-59); AST (SGOT) 21 U/L (15-37); GLOMERULAR FILTRATION RATE,EST 85 mL/min (>60); PROTEIN, TOTAL 7.5 g/dL (6.4-8.2); TSH, 3RD GENERATION 0.661 uIU/mL (0.358-3.740); UREA NITROGEN 13 mg/dL (7-18)
[2025-01-24] MEDS ORDERED: ACETAMINOPHEN 500 MG TAB PO ONE (18:15)
[2025-01-24 19:20] LABS: BLOOD/HGB, URINE TRACE-L (Negative); KETONE, URINE NEGATIVE (Negative); LEUK ESTERASE, URINE NEGATIVE (negative); NITRITE, URINE NEGATIVE (negative)
[2025-01-24] MEDS ORDERED: SODIUM CHLORIDE 0.9% 1,000 ML IV PRN (19:30)
[2025-01-24 19:31] LABS: AMPHETAMINES, URINE NEGATIVE (NEGATIVE); BARBITURATES, URINE NEGATIVE (NEGATIVE); BENZODIAZEPINE, URINE NEGATIVE (NEGATIVE); CANNABINOID, URINE POSITIVE (NEGATIVE); COCAINE, URINE NEGATIVE (NEGATIVE); ECSTASY, URINE NEGATIVE (NEGATIVE); FENTANYL, URINE NEGATIVE (NEGATIVE); METHADONE, URINE NEGATIVE (NEGATIVE); OPIATES, URINE NEGATIVE (NEGATIVE); OXYCODONE, URINE NEGATIVE (NEGATIVE); PHENCYCLIDINE, URINE NEGATIVE (NEGATIVE)
[2025-01-24 19:37] LABS: BACTERIA, URINE RARE /hpf (negative); CASTS, URINE NONE SEEN \\lpf; CRYSTALS, URINE NONE SEEN (0-1+); EPITHELIAL CELLS, URINE NONE SEEN /lpf (0-1+)
[2025-01-24 19:38] LABS: REFLEX CULTURE, URINE Yes (No)
[2025-01-24 20:19] VITALS: BP 115/76
--- NOTE | 2025-01-29 22:08 | EKG ---
[facility] [address] [place] [address] Signed Normal sinus rhythm Incomplete right bundle branch block Borderline ECG When compared with ECG of 23-JUN-2024 17:53, No significant change was found Confirmed by Dea Zimmerman MD () on 01/29/2025 10:08:28 PM Electronically Signed By: DEA ZIMMERMAN MD 01/29/25 2208 PATIENT NAME: MICHELE PITT Electrocardiogram DATE OF : 73 PHYSICIAN: DEA ZIMMERMAN MD REPORT #: [id number] REPORT IS CONFIDENTIAL AND NOT TO BE RELEASED WITHOUT AUTHORIZATION
== END 2025-01-24 20:20 | disposition home or self-care (01) ==
LOC: ED 17:13
PROVIDERS: Emergency Medicine
DX: R41.82 Altered mental status, unspecified (principal); I10 Essential (primary) hypertension; K21.9 Gastro-esophageal reflux disease without esophagitis
CPT/HCPCS: 36415; 70450; 80053; 80307; 81001; 84443; 85025; 87088; 93005; 93010; 96360; 99285-25; A9270; G0480; J7030